=== PATIENT | male | born 1985 | race Caucasian/White ===

== ENCOUNTER 2020-09-02 12:15 | Outpatient (REF) | payer OTHER, SELFPAY | END 2020-09-02 12:16 | disposition home or self-care (01) | LOC: HO.WFDLDS 12:15 | PROVIDERS: Visit Provider Internal Medicine | DX: Z20.828 Contact with and (suspected) exposure to other viral communicable diseases (principal) | CPT/HCPCS: C9803; U0003 ==

== ENCOUNTER 2023-06-08 06:40 | Emergency (ER) | payer OTHER, SELFPAY ==
--- NOTE | 2023-06-08 | ECG_ITS ---
Test Reason : + cocaine Blood Pressure : / mmHG Vent. Rate : 063 BPM Atrial Rate : 063 BPM P-R Int : 154 ms QRS Dur : 090 ms QT Int : 408 ms P-R-T Axes : 029 060 035 degrees QTc Int : 417 ms Normal sinus rhythm Normal ECG No previous ECGs available Referred By: Man Auguste Electronically Signed By:MARCO REBOLLEDO
[2023-06-08 06:55] VITALS: BP 140/86; PULSE 70; RESP 16; TEMP 36.4; O2SAT 95; BMI 57.8
[2023-06-08 07:57] LABS: MANUAL DIFF FLAG NO
[2023-06-08 07:58] LABS: Basophils Absolute Auto 0.1 X10*3/uL (0.0-0.2); Basophils Percent Auto 0.6 % (0-2); Eosinophils Absolute Auto 0.3 X10*3/uL (0.0-0.4); Eosinophils Percent Auto 3.8 % (0-4); Hematocrit 35.6 % (42.0-52.0); Hemoglobin 11.2 g/dl (14.0-18.0); Imm Gran Abs Auto 0.03 X10*3/uL (0.00-0.03); Imm Gran Pct Auto 0.3 % (0.0-0.4); Lymphocytes Absolute Auto 2.1 X10*3/uL (1.2-4.9); Lymphocytes Percent Auto 24.4 % (20-40); Mean Corpuscular HGB Conc 31.5 g/dl (31.0-36.0); Mean Corpuscular Hemoglobin 28.9 pg (27.0-33.0); Mean Platelet Volume 9.4 fL (9.4-12.4); Monocytes Absolute Auto 0.8 X10*3/uL (0.1-1.2); Monocytes Percent Auto 9.4 % (2-11); Neutrophils Absolute Auto 5.4 x10*3/uL (2.0-8.3); Neutrophils Percent Auto 61.5 % (45-73); Platelet Count 213 X10*3/uL (160-400); Red Blood Count 3.87 X10*6/uL (4.60-5.80); Red Cell Distribution Width 13.2 % (11.0-16.0); White Blood Count 8.7 X10*3/uL (4.8-10.8)
--- OUTSIDE RECORDS SUMMARY | 2023-06-08 08:04 | XMS_ITS | Continuity of Care Document ---
Author Name Unknown Organization [facility] ter Address [address] [place] [id number]- Care Team Providers Care Instructional Technology Instructor Name Role Phone Not on Staff, PCP Primary Care Physician Unavail able Encounter [facility] Date(s): 02/17/21 - 02/17/[address] [address]- Encounter Diagnosis Injury of hand, flexor tendon(Final) - 02/17/21 Discharge Disposition: A-D/C Home Attending Physician: Andra Dacosta DO Admitting Physician: Andra Dacosta DO Referring Physician: Not on Staff, Referring MD Allergies, Adverse Reactions, Alerts Substance Reaction Severity Status lithium 1 Persistent Severe Active Geodon 2 Persistent Severe Active traZODone Active 1Throat swelling 2Throat swelling Immunizations Given and Recorded Vaccine Date Status Refusal Reason influenza virus vaccine, inactivated 07/06/20 Give n influenza virus vaccine, inactivated 08/29/18 Give n influenza virus vaccine, inactivated 09/15/14 Give n pneumococcal 23-valent vaccine 08/29/18 Given Not Given Vaccine Date Status Refusal Reason pneumococcal 23-valent vaccine 09/15/14 Not Given Patient Refuses Medications apixaban 5 mg oral tablet See Instructions, 2 tablet By Mouth 2 times a day 6 days FOllowed by 1 tablet 2 times a day for 24 days, # 72 tablet, 0 Refills, Maintenance, 07/06/20 10:39:00 EDT, Tablet, [facility] #[id number], 173, cm, 07/06/20 7:57:00 EDT, Height, 133.1, kg,... Start Date: 07/06/20 Status: Ordered cloNIDine 0.1 mg oral tablet 0.1 mg, 1, tablet, By Mouth, 2 times a day, PRN, # 20 tablet, Refills 0, Tot. Refills 0, Maintenance, Anxiety, 12/06/20 16:27:00 EST, Route to Pharmacy Electronically, [facility]/pharmacy #[id number], Partial fill upon patient request if the prescription is for a... Start Date: 12/06/20 Stop Date: 12/16/20 Status: Ordered Flomax 0.4 mg oral capsule 0.8 mg, 2, capsule, By Mouth, Daily, Please follow up with PMD upon discharge, # 60 capsule, Refills 0, Tot. Refills 0, Maintenance, 12/06/20 16:32:00 EST, Route to Pharmacy Electronically, [facility]acy #[id number], Partial fill upon patient request if the... Start Date: 12/06/20 Stop Date: 01/05/21 Status: Ordered gabapentin 800 mg oral tablet 1 tablet = 800 mg, By Mouth, 4 times a day, # 120 tablet, 0 Refills, Maintenance, 12/06/20 16:28:00EST, [facility]/pharmacy #[id number], Partial fill upon patient request if the prescription is for a schedule IIopioid drug., 173, cm, 12/06/20 16:12:00 EST, Heigh... Start Date: 12/06/20 Stop Date: 01/05/21 Status: Ordered hydrOXYzine hydrochloride 50 mg oral tablet TAKE 1&1/2 TABLETS BY MOUTH EVERY MORNING AND 1 TABLET UP TO TWICE A DAY NEEDED FOR ANXIETY Start Date: 11/24/20 Status: Ordered lamotrigine 100 mg oral tablet 100 mg, 1, tablet, By Mouth, 2 times a day, # 60 tablet, Refills 0, Tot. Refills 0, Maintenance, 12/06/20 16:28:00 EST, Route to Pharmacy Electronically, [facility]/pharmacy #[id number], Partial fill upon patientrequest if the prescription is for a schedule II op... Start Date: 12/06/20 Stop Date: 01/05/21 Status: Ordered mirtazapine 15 mg oral tablet 1 tablet = 15 mg, By Mouth, Daily at bedtime, # 30 tablet, 0 Refills, Maintenance, 12/06/20 16:31:00 EST, Tablet, [facility]/pharmacy #[id number], Partial fill upon patient request if the prescription is for a schedule II opioid drug., 173, cm, 12/06/20 16:12:00 E... Start Date: 12/06/20 Stop Date: 01/05/21 Status: Ordered mirtazapine 45 mg oral tablet 1 tablet = 45 mg, By Mouth, Daily in AM, # 30 tablet, 0 Refills, Maintenance, 12/06/20 16:32:00 EST, Tablet, [facility]/pharmacy #[id number], Partial fill upon patient request if the prescription is for a schedule II opioid drug., 173, cm, 12/06/20 16:12:00 EST, H... Start Date: 12/06/20 Stop Date: 01/05/21 Status: Ordered olanzapine 10 mg oral tablet 10 mg, 1, tablet, By Mouth, Daily at bedtime, # 30 tablet, Refills 0, Tot. Refills 0, Maintenance, 12/06/20 16:32:00 EST, Route to Pharmacy Electronically, [facility]/pharmacy #[id number], Partial fill upon patient request if the prescription is for a schedule II... Start Date: 12/06/20 Stop Date: 01/05/21 Status: Ordered oxybutynin 15 mg/24 hr oral tablet, extended release 1 tablet = 15 mg, By Mouth, Daily, Please see your provider for continued treatment, # 30 tablet, 0Refills, Maintenance, 12/06/20 16:33:00 EST, ER Tablet, [facility]/pharmacy #[id number], Partial fill upon patient request if the prescription is for a schedule II... Start Date: 12/06/20 Stop Date: 01/05/21 Status: Ordered Pepcid 20 mg oral tablet 1 tablet = 20 mg, By Mouth, 2 times a day, # 60 tablet, 2 Refills, Maintenance, 07/06/20 11:43:00 EDT, Tablet, [facility] #[id number], 173, cm, 07/06/20 7:57:00 EDT, Height, 133.1, kg, 07/05/20 15:21:00 EDT, Dry Weight Start Date: 07/06/20 Stop Date: 10/04/20 Status: Ordered propranolol 20 mg oral tablet 20 mg, 1, tablet, By Mouth, 4 times a day, PRN, Refills 0, Maintenance, Anxiety, 07/05/20 16:16:00 EDT Start Date: 07/05/20 Status: Ordered Problem List Condition Effective Dates Status Health Status Inform ant Alcohol dependence(Confirmed) Active Benign essential HTN(Confirmed) Active Benzodiazepine abuse(Confirmed) Active Cannabis abuse(Confirmed) Active Cocaine abuse(Confirmed) Active Depression(Confirmed) Active H/O osteomyelitis(Confirmed) Active Nicotine dependence(Confirmed) Active Opiate dependence(Confirmed) Active Hepatitis C(Confirmed) Active Weight loss(Confirmed) Active Results Radiology Reports * Exam Date Time Procedure Performing Provider Status 02/17/21 5:48 PM Finger Thumb Left Hand Eze Patricia le; Auth (Verified) Notes: (Finger Thumb Left Hand) Reason For Exam: Trauma RESULT: Finger Thumb Left Hand Finger Thumb Left Hand, 3 views Hx of Present Illness: Left thumb injury, sutures in place. wants sutures removed and thumb evaluated by provider.; Reason: Trauma; Clinical Question(s): Fracture COMPARISON: 01/13/2019. FINDINGS: No fractures or bone lesions. The incidentally included remainder of the hand is notable for an oldhealed fracture of the fifth metacarpal neck, previous fracture also seen on exam from 01/13/2019. No arthritic changes. No radiopaque foreign body. IMPRESSION: No acute osseous findings. WSN: [id number] Ordering Physician: Alexa Bolaños Dictated By: Shae Avalos MD Dictated Date/Time: 02/17/21 5:52 pm Reviewed By: Shae Avalos MD Signed By: Shae Avalos MD Signed Date/Time: 02/17/21 5:52 pm Transcribed By: NAYELI Transcribed Date/Time: 02/17/21 5:50 pm Vital Signs Most recent to oldest [Reference Range]: 1 2 3 Oxygen Saturation [94-100 %] 100 % (02/17/21 6:11 PM) 100 % (02/17/21 3:33 PM) 99 % (02/17/21 1:02 PM) Pulse Rate [55-90 bpm] 70 bpm (02/17/21 6:11 PM) 69 bpm (02/17/21 3:33 PM) 90 bpm (02/17/21 1:02 PM) Blood Pressure [90-138/55-84 mm Hg] 146/107mm Hg *H* (02/17/21 6:11 PM) 131/102mm Hg (02/17/21 3:33 PM) Respiratory Rate [16-30 br/min] 16 br/min (02/17/21 6:11 PM) 20 br/min (02/17/21 3:33 PM) Temperature [96.8-100.4 DegF] 98.4 DegF (02/17/21 6:11 PM) 98 DegF (02/17/21 3:33 PM) Mode of Delivery (Oxygen) Room air (02/17/21 6:11 PM) Room air (02/17/21 3:33 PM) Room air (02/17/21 1:02 PM) Blood pressure sites Arm, right (02/17/21 6:11 PM) Arm, right (02/17/21 3:33 PM) Temperature Route Oral (02/17/21 6:11 PM) Oral (02/17/21 3:33 PM) Social History Social History Type Response Smoking Status Current every day susanna christensen entered on: 09/14/14 Sex
--- OUTSIDE RECORDS SUMMARY | 2023-06-08 08:04 | XMS_ITS | Continuity of Care Document ---
Author Name Unknown Organization [facility] ter Address [address] [place] [id number]- Care Team Providers Care Choker Hooker Name Role Phone Not on Staff, PCP Primary Care Physician Unavail able Encounter [facility] Date(s): 05/22/21 - 05/23/[address] [address] Discharge Disposition: A-D/C Home Attending Physician: Rain CALLAWAY [facility] Admitting Physician: Govind Hobbs DO Referring Physician: Not on Staff, Referring [...] vaccine 09/15/14 Not Given Patient Refuses Medications Bactrim DS 800 mg-160 mg oral tablet 2 tablets, By Mouth, Every 12 hours, for 2 days, # 8 tablet, 0 Refills, Acute 05/25/21 12:08:00 EDT, 05/23/21 12:08:00 EDT, Tablet, [facility], Partial fill upon patient request if the prescription is for a schedule II opioid drug., 2 tablet... Start Date: 05/23/21 Stop Date: 05/25/21 Status: Ordered cloNIDine 0.1 mg oral tablet 0.1 mg, 1, tablet, By Mouth, 4 times a day, PRN, # 120 tablet, Refills 0, Tot. Refills 0, Maintenance, Anxiety, 12/06/20 16:27:00 EST, Route to Pharmacy Electronically, [facility]/pharmacy #[id number], Partial fill upon patient request if the prescription is for a... Start Date: 12/06/20 Stop Date: 12/16/20 Status: Ordered Flomax 0.4 mg oral capsule 0.8 mg, 2, capsule, By Mouth, Daily at bedtime, # 60 capsule, Refills 1, Tot. Refills 1, Maintenance, 04/27/21 13:05:00 EDT, Route to Pharmacy Electronically, [facility], Partial fill upon patient request if the prescription is for a schedul... Start Date: 04/27/21 Status: Ordered gabapentin 400 mg oral capsule 800 mg, Capsule, By Mouth, 05/23/21 13:00:00 EDT Start Date: 05/23/21 Stop Date: 05/23/21 Status: Completed gabapentin 800 mg oral tablet 1 tablet = 800 mg, By Mouth, 4 times a day, # 120 tablet, 0 Refills, Maintenance, 12/06/20 16:28:00EST, [facility]/pharmacy #[id number], Partial fill upon patient request if [...] 12/06/20 16:28:00 EST, [id number] fill upon patientrequest if the prescription is for a schedule II op... Start Date: 12/06/20 Stop Date: 01/05/21 Status: Ordered methadone 10 mg/5 mL oral solution 80 mL = 160 mg, By Mouth, Daily, 0 Refills, Maintenance, 05/23/21 12:07:00 EDT, Solution, Partial fill upon patient request if the prescription is for a schedule II opioid drug. Start Date: 05/23/21 Status: Ordered mirtazapine 15 mg oral tablet 1 tablet = 15 mg, By Mouth, Daily at bedtime, # 30 tablet, 0 Refills, Maintenance, 12/06/20 16:31:00 EST, Tablet, [facility]/pharmacy #[id number], Partial fill upon patient request if the prescription is for a schedule II opioid drug., 173, cm, 12/06/20 16:12:00 E... Start Date: 12/06/20 Stop Date: 01/05/21 Status: Ordered mirtazapine 45 mg oral tablet 1 tablet = 45 mg, By Mouth, Daily in AM, # 30 tablet, 0 Refills, Maintenance, 12/06/20 16:32:00 EST, Tablet, [facility]/pharmacy #[id number], Partial fill upon patient request if the prescription is for a schedule II opioid drug., 173, cm, 12/06/20 16:12:00 EST, H... Start Date: 12/06/20 Stop Date: 01/05/21 Status: Ordered MorPHINE CR Tablet 15 mg, CR Tablet, By Mouth, Daily, 30 minutes before dressing changes, PRN for Pain , Severe, Routine, 05/21/21 14:57:00 EDT Notes: Do Not Crush. Start Date: 05/21/21 Stop Date: 05/28/21 Status: Ordered olanzapine 10 mg oral tablet See Instructions, 1 tablet By Mouth Daily at bedtime, 1/2 tab daily in AM, # 45 tablet, Refills 1, Tot. Refills 1, Maintenance, 04/27/21 13:04:00 EDT, Instructions Replace Required Details, Route to Pharmacy Electronically, [facility], Parti... Start Date: 04/27/21 Status: Ordered oxybutynin 10 mg/24 hr oral tablet, extended release 1 tablet = 10 mg, By Mouth, Daily, # 30 tablet, 1 Refills, Maintenance, 04/27/21 13:05:00 EDT, ER Tablet, [facility], Partial fill upon patient request if the prescription is for a scheduleII opioid drug., 172, cm, 04/27/21 9:52:00 EDT, Hei... Start Date: 04/27/21 Status: Ordered propranolol 20 mg oral tablet 20 mg, 1, tablet, By Mouth, 4 times a day, PRN, Refills 0, Maintenance, Anxiety, 07/05/20 16:16:00 EDT Start Date: 07/05/20 Status: Ordered propranolol 20 mg oral tablet 20 mg, Tablet, By Mouth, 05/23/21 13:00:00 EDT Start Date: 05/23/21 Stop Date: 05/23/21 Status: Completed Problem List Condition Effective Dates Status Health Status Inform ant Alcohol dependence(Confirmed) Active Benign essential HTN(Confirmed) Active Benzodiazepine abuse(Confirmed) Active Cannabis abuse(Confirmed) Active Cocaine abuse(Confirmed) Active Depression(Confirmed) Active H/O osteomyelitis(Confirmed) Active Nicotine dependence(Confirmed) Active Opiate dependence(Confirmed) Active Hepatitis C(Confirmed) Active Weight loss(Confirmed) Active Results Orders for Microbiology Reports Name Date Blood Culture 05/21/21 Blood Culture #2 05/21/21 Blood Culture 05/20/21 Blood Culture #2 05/20/21 Wound Deep Culture w/ Gram Smear (Cultur e Wound Deep w/ Gram Smear) 05/20/21 Wound Superficial Culture W/ Gram Smear (Culture Wound Superficial w/ Gram Smear) 05/20/21 Microbiology Reports TEST:Blood Culture STATUS:Unauthenticated BODY SITE: SOURCE:Blood COLLECTED DATE/TIME:05/21/21 5:53 AM Blood Culture SPECIMEN DESCRIPTION : BLOOD SPECIAL REQUESTS : NONE CULTURE : NO GROWTH AFTER 48 HOURS REPORT STATUS : PRELIMINARY REPORT TEST:Blood Culture, Second Order STATUS:Unauthenticated BODY SITE: SOURCE:Blood COLLECTED DATE/TIME:05/21/21 5:53 AM Blood Culture, Second Order SPECIMEN DESCRIPTION : BLOOD SPECIAL REQUESTS : NONE CULTURE : NO GROWTH AFTER 48 HOURS REPORT STATUS : PRELIMINARY REPORT TEST:Blood Culture STATUS:Unauthenticated BODY SITE: SOURCE:Blood COLLECTED DATE/TIME:05/20/21 6:42 PM Blood Culture SPECIMEN DESCRIPTION : BLOOD NO SITE SPECIAL REQUESTS : NONE CULTURE : NO GROWTH 3 DAYS REPORT STATUS : PRELIMINARY REPORT TEST:Blood Culture, Second Order STATUS:Unauthenticated BODY SITE: SOURCE:Blood COLLECTED DATE/TIME:05/20/21 6:42 PM Blood Culture, Second Order SPECIMEN DESCRIPTION : BLOOD NO SITE SPECIAL REQUESTS : NONE CULTURE : NO GROWTH 3 DAYS REPORT STATUS : PRELIMINARY REPORT TEST:Deep Wound Culture STATUS:Auth (Verified) BODY SITE: SOURCE:WOUND COLLECTED DATE/TIME:05/20/21 3:34 PM Deep Wound Culture SPECIMEN DESCRIPTION : WOUND BACK SPECIAL REQUESTS : NONE GRAM STAIN : 4+ POLYMORPHONUCLEAR LEUKOCYTES 2+ GRAM POSITIVE COCCI CULTURE : 2+ STAPHYLOCOCCUS AUREUS, METHICILLIN RESISTANT. METHICILLIN RESISTANT STAPH AUREUS SHOULD BE CONSIDERED CLINICALLY RESISTANT TO ALL BETA-LACTAMS. REPORT STATUS : FINAL 05/22/2021 ORGANISM 2+ STAPHYLOCOCCUS AUREUS, METHICILLIN RESISTANT. METHICILLIN RESISTANT STAPH AUREUS SHOULD BE CONSIDERED CLINICALLY RESISTANT TO ALL BETA-LACTAMS. METHOD MIN. INHIB. CONC. (MCG/ML) CIPROFLOXACIN SUSCEPTIBLE CLINDAMYCIN SUSCEPTIBLE ERYTHROMYCIN RESISTANT INDUCIBLE CLINDAMYCI NEGATIVE LEVOFLOXACIN SUSCEPTIBLE LINEZOLID SUSCEPTIBLE OXACILLIN RESISTANT RIFAMPIN SUSCEPTIBLE RIFAMPIN RIFAMPIN SHOULD NOT BE USED ALONE FOR ANTIMICROBIAL RIFAMPIN THERAPY. TETRACYCLINE SUSCEPTIBLE TRIMETH/SULFAMETHOX SUSCEPTIBLE VANCOMYCIN SUSCEPTIBLE TEST:Superficial Wound Culture STATUS:Auth (Verified) BODY SITE: SOURCE:LESION1 COLLECTED DATE/TIME:05/20/21 12:43 PM Superficial Wound Culture SPECIMEN DESCRIPTION : LESION BACK SPECIAL REQUESTS : NONE GRAM STAIN : 4+ POLYMORPHONUCLEAR LEUKOCYTES 3+ GRAM POSITIVE COCCI CULTURE : 4+ STAPHYLOCOCCUS AUREUS, METHICILLIN RESISTANT. METHICILLIN RESISTANT STAPH AUREUS SHOULD BE CONSIDERED CLINICALLY RESISTANT TO ALL BETA-LACTAMS. REPORT STATUS : FINAL 05/22/2021 ORGANISM 4+ STAPHYLOCOCCUS AUREUS, METHICILLIN RESISTANT. METHICILLIN RESISTANT STAPH AUREUS SHOULD BE CONSIDERED CLINICALLY RESISTANT TO ALL BETA-LACTAMS. METHOD MIN. INHIB. CONC. (MCG/ML) CIPROFLOXACIN SUSCEPTIBLE CLINDAMYCIN SUSCEPTIBLE ERYTHROMYCIN RESISTANT INDUCIBLE CLINDAMYCI NEGATIVE LEVOFLOXACIN SUSCEPTIBLE LINEZOLID SUSCEPTIBLE OXACILLIN RESISTANT RIFAMPIN SUSCEPTIBLE RIFAMPIN RIFAMPIN SHOULD NOT BE USED ALONE FOR ANTIMICROBIAL RIFAMPIN THERAPY. TETRACYCLINE SUSCEPTIBLE TRIMETH/SULFAMETHOX SUSCEPTIBLE VANCOMYCIN SUSCEPTIBLE Vital Signs Most recent to oldest [Reference Range]: 1 2 3 Height 172.7 cm (05/23/21 11:44 AM) 172.7 cm (05/23/21 8:20 AM) 172.7 cm (05/23/21 4:55 AM) Weight 136.0 kg (05/19/21 7:38 PM) Oxygen Saturation [94-100 %] 100 % (05/23/21 11:44 AM) 95 % (05/23/21 8:20 AM) 98 % (05/23/21 4:55 AM) Pulse Rate [55-90 bpm] 59 bpm (05/23/21 12:17 PM) 59 bpm (05/23/21 11:44 AM) 58 bpm (05/23/21 8:20 AM) Body Mass Index [18.5-24.99] 45.6 *>HHI* (05/19/21 7:38 PM) Blood Pressure [90-138/55-84 mm Hg] 119/77mm Hg (05/23/21 12:17 PM) 119/77mm Hg (05/23/21 11:44 AM) 122/81mm Hg (05/23/21 8:20 AM) Respiratory Rate [16-30 br/min] 18 br/min (05/23/21 12:16 PM) 20 br/min (05/23/21 11:44 AM) 16 br/min (05/23/21 9:44 AM) Temperature [96.8-100.4 DegF] 97.6 DegF (05/23/21 11:44 AM) 97.5 DegF (05/23/21 8:20 AM) 98.0 DegF (05/23/21 4:55 AM) Mode of Delivery (Oxygen) Room air (05/23/21 11:44 AM) Room air (05/23/21 8:20 AM) Room air (05/23/21 4:55 AM) Blood pressure sites Arm, right (05/23/21 11:44 AM) Arm, left (05/23/21 8:20 AM) Arm, right (05/23/21 4:55 AM) Temperature Route Oral (05/23/21 11:44 AM) Oral (05/23/21 8:20 AM) Oral (05/23/21 4:55 AM) Dry Weight 136 kg (05/19/21 7:38 PM) Social History Social History Type Response Smoking Status Current every day susanna christensen entered on: 09/14/14 Sex Male
--- OUTSIDE RECORDS SUMMARY | 2023-06-08 08:04 | XMS_ITS | Continuity of Care Document ---
Author Name Unknown Organization [facility] Address [address] [place] [address] [address] [place] [address]- Care Team Providers Care Editor Sound Name Role Phone Not on Staff, PCP Primary Care Physician Unavail able Encounter [facility] Date(s): 03/07/21 - 04/06/21 [facility] [address] [place], [place] [address] Attending Physician: Nayana Angelo Admitting Physician: Admtr, [id number] Referring Physician: Admtr, [id number] Allergies, Adverse Reactions, Alerts Substance Reaction Severity [...] vaccine 09/15/14 Not Given Patient Refuses Medications cloNIDine 0.1 mg oral tablet 0.1 mg, 1, tablet, By Mouth, 2 times a day, PRN, # 20 tablet, Refills 0, Tot. Refills 0, Maintenance, Anxiety, 12/06/20 16:27:00 EST, Route to Pharmacy Electronically, [facility]/pharmacy #[id number], Partial fill upon patient request if the prescription is for a... Start Date: 12/06/20 Stop Date: 12/16/20 Status: Ordered gabapentin 800 mg oral tablet 1 tablet = 800 mg, By Mouth, 4 times a day, # 120 tablet, 0 Refills, Maintenance, 12/06/20 16:28:00EST, [facility] #[id number], Partial fill upon patient request [...] 12/06/20 16:28:00 EST, Route to Pharmacy Electronically, [id number], Partial fill upon patientrequest if the prescription is for a schedule II op... Start Date: 12/06/20 Stop Date: 01/05/21 Status: Ordered mirtazapine 15 mg oral tablet 1 tablet = 15 mg, By Mouth, Daily at bedtime, # 30 tablet, 0 Refills, Maintenance, 12/06/20 16:31:00 EST, Tablet, [id number], Partial fill upon patient request if the prescription is for a schedule II opioid drug., 173, cm, 12/06/20 16:12:00 E... Start Date: 12/06/20 Stop Date: 01/05/21 Status: Ordered mirtazapine 45 mg oral tablet 1 tablet = 45 mg, By Mouth, Daily in AM, # 30 tablet, 0 Refills, Maintenance, 12/06/20 16:32:00 EST, Tablet, [id number], Partial fill upon patient request [...] Date: 12/06/20 Stop Date: 01/05/21 Status: Ordered propranolol 20 mg oral tablet [...] Active Hepatitis C(Confirmed) Active Weight loss(Confirmed) Active Social History Social History Type Response Smoking Status Current every day susanna christensen entered on: 09/14/14 Sex Male
--- OUTSIDE RECORDS SUMMARY | 2023-06-08 08:04 | XMS_ITS | Continuity of Care Document ---
Author Name Unknown Organization [facility] Address [address] [place] [address]- Care Team Providers Care Smoke Eater Name Role Phone Not on Staff, PCP Primary Care Physician Unavail able [place] [facility] [place] 04[place]/21 [facility] [address] [place] [address]- Discharge Disposition: A-D/C Home Attending Physician: Veronica Solano MD Admitting Physician: Veronica Solano MD Referring Physician: Veronica Solano MD Allergies, Adverse Reactions, Alerts Substance Reaction [...] 12/06/20 16:27:00 EST, Route to Pharmacy Electronically, [facility]/pharmacy #[id number], Partial fill upon patient request if the prescription is for a... Start Date: 12/06/20 Stop Date: 12/16/20 Status: Ordered Flomax 0.4 mg oral capsule 0.8 mg, 2, capsule, By Mouth, Daily at bedtime, # 60 capsule, Refills 1, Tot. Refills 1, Maintenance, 04/27/21 13:05:00 EDT, Route to Pharmacy Electronically, [facility], Partial fill upon patient request if the prescription is for a schedul... Start Date: 04/27/21 Status: Ordered gabapentin 800 mg oral tablet 1 tablet = 800 mg, By Mouth, 4 times a day, # 120 tablet, 0 Refills, Maintenance, 12/06/20 16:28:00EST, [facility]/pharmacy #[id number], Partial fill upon patient request if the prescription is for a schedule IIopioid drug., 173, cm, 12/06/20 16:12:00 EST, Heigh... Start Date: 12/06/20 Stop Date: 01/05/21 Status: Ordered Gabapentin Capsule 800 mg, Capsule, By Mouth, 04/27/21 21:00:00 EDT Start Date: 04/27/21 Stop Date: 04/27/21 Status: Completed Gabapentin Capsule 800 mg, Capsule, By Mouth, 04/28/21 9:00:00 EDT Start Date: 04/28/21 Stop Date: 04/28/21 Status: Completed hydrOXYzine hydrochloride 50 mg oral tablet TAKE 1&1/2 TABLETS BY MOUTH EVERY MORNING AND 1 TABLET UP TO TWICE A DAY NEEDED FOR ANXIETY Start Date: 11/24/20 Status: Ordered lamotrigine 100 mg oral tablet 100 mg, 1, tablet, By Mouth, 2 times a day, # 60 tablet, Refills 0, Tot. Refills 0, Maintenance, 12/06/20 16:28:00 EST, Route to Pharmacy Electronically, [facility]/pharmacy #[id number], Partial fill upon patientrequest if the prescription is for a schedule II op... Start Date: 12/06/20 Stop Date: 01/05/21 Status: Ordered Methadone Liquid 160 mg, Solution, By Mouth, 04/28/21 6:00:00 EDT Start Date: 04/28/21 Stop Date: 04/28/21 Status: Completed mirtazapine 15 mg oral tablet 1 tablet = 15 mg, By Mouth, Daily at bedtime, # 30 tablet, 0 Refills, Maintenance, 12/06/20 16:31:00 EST, Tablet, [facility]/pharmacy #[id number], Partial fill upon patient request if the prescription is for a schedule II opioid drug., 173, cm, 12/06/20 16:12:00 E... Start Date: 12/06/20 Stop Date: 01/05/21 Status: Ordered mirtazapine 45 mg oral tablet 1 tablet = 45 mg, By Mouth, Daily in AM, # 30 tablet, 0 Refills, Maintenance, 12/06/20 16:32:00 EST, Tablet, [facility]/pharmacy #[id number], Partial fill upon patient request [...] Replace Required Details, Route to Pharmacy Electronically, [facility], Parti... Start Date: 04/27/21 Status: Ordered oxybutynin 10 mg/24 hr oral tablet, extended release 1 tablet = 10 mg, By Mouth, Daily, # 30 tablet, 1 Refills, Maintenance, 04/27/21 13:05:00 EDT, ER Tablet, [facility], Partial fill upon patient request if [...] oral tablet 20 mg, Tablet, By Mouth, 4 times a day, PRN for Anxiety, Routine, 04/19/21 10:21:00 EDT Start Date: 04/19/21 Stop Date: 04/28/21 Status: Discontinued Problem List Condition Effective Dates Status Health Status Inform ant Alcohol dependence(Confirmed) Active Benign essential HTN(Confirmed) Active Benzodiazepine abuse(Confirmed) Active Cannabis abuse(Confirmed) Active Cocaine abuse(Confirmed) Active Depression(Confirmed) Active H/O osteomyelitis(Confirmed) Active Nicotine dependence(Confirmed) Active Opiate dependence(Confirmed) Active Hepatitis C(Confirmed) Active Weight loss(Confirmed) Active Vital Signs Most recent to oldest [Reference Range]: 1 2 3 Height 172 cm (04/28/21 8:12 AM) 172 cm (04/27/21 4:54 PM) 172 cm (04/27/21 9:52 AM) Weight 138.1 kg (04/25/21 8:33 AM) 134.3 kg (04/18/21 6:59 PM) Oxygen Saturation [94-100 %] 97 % (04/28/21 8:12 AM) 98 % (04/27/21 4:54 PM) 100 % (04/27/21 9:52 AM) Pulse Rate [55-90 bpm] 87 bpm (04/28/21 8:12 AM) 79 bpm (04/27/21 4:54 PM) 80 bpm (04/27/21 1:11 PM) Body Mass Index [18.5-24.99] 45.4 *>HHI* (04/18/21 6:59 PM) Blood Pressure [90-138/55-84 mm Hg] 135/76mm Hg (04/28/21 8:12 AM) 117/83mm Hg (04/27/21 4:54 PM) 108/72mm Hg (04/27/21 1:11 PM) Respiratory Rate [16-30 br/min] 16 br/min (04/28/21 8:18 AM) 16 br/min (04/28/21 5:04 AM) 18 br/min (04/27/21 8:53 PM) Temperature [96.8-100.4 DegF] 97.5 DegF (04/28/21 8:12 AM) 98.7 DegF (04/27/21 4:54 PM) 96.9 DegF (04/27/21 8:11 AM) Mode of Delivery (Oxygen) Room air (04/27/21 4:54 PM) Room air (04/27/21 8:11 AM) Room air (04/26/21 4:04 PM) Blood pressure sites Arm, left (04/28/21 8:12 AM) Arm, left (04/27/21 4:54 PM) Arm, right (04/27/21 8:11 AM) Temperature Route Temporal (04/28/21 8:12 AM) Temporal (04/27/21 4:54 PM) Temporal (04/27/21 8:11 AM) Dry Weight 134.4 kg (04/18/21 6:59 PM) Sensory deficits None (04/18/21 6:59 PM) Social History Social History Type Response Smoking Status Current every day susanna christensen entered on: 09/14/14 Sex Male
--- OUTSIDE RECORDS SUMMARY | 2023-06-08 08:04 | XMS_ITS | Continuity of Care Document ---
Author Name Unknown Organization [facility] ter Address [address] [place] [id number]- Care Team Providers Care Lining Maker Hand Name Role Phone Not on Staff, PCP Primary Care Physician Unavail able Encounter [facility] [place] Date(s): 04/17/21 - 04/18/[address] [address]- Encounter Diagnosis Suicidal ideation(Final) - 04/17/21 Discharge Disposition: Transfer to [facility] Attending Physician: Selvin Miller MD Admitting Physician: Selvin Miller MD Referring Physician: Not on Staff, Referring MD Allergies, Adverse Reactions, Alerts Substance Reaction Severity Status lithium 1 Persistent Severe Active traZODone Active Geodon 2 Persistent Severe Active 1Throat swelling 2Throat swelling Immunizations Given [...] 12/06/20 16:27:00 EST, Route to Pharmacy Electronically, [facility]/pharmacy #[id number], Partial fill upon patient request if the prescription is for a... Start Date: 12/06/20 Stop Date: 12/16/20 Status: Ordered gabapentin 400 mg oral capsule 800 mg, Capsule, By Mouth, 04/18/21 17:00:00 EDT Start Date: 04/18/21 Stop Date: 04/18/21 Status: Completed gabapentin 800 mg oral tablet 1 tablet = 800 mg, By Mouth, 4 times a day, # 120 tablet, 0 Refills, Maintenance, 12/06/20 16:28:00EST, [facility]/pharmacy #[id number], Partial fill upon patient request if the prescription is for a schedule IIopioid drug., lesley Smith, 12/06/20 16:12:00 EST, Heigh... Start Date: 12/06/20 [...] 12/06/20 16:28:00 EST, Route to Pharmacy Electronically, [facility]/pharmacy #[id number], Partial fill upon patientrequest if the prescription is for a schedule II op... Start Date: 12/06/20 Stop Date: 01/05/21 Status: Ordered mirtazapine 15 mg oral tablet 1 tablet = 15 mg, By Mouth, Daily at bedtime, # 30 tablet, 0 Refills, Maintenance, 12/06/20 16:31:00 EST, Tablet, [facility]/pharmacy #[id number], Partial fill upon patient request if the prescription is for a schedule II opioid drug., lesley Smith, 12/06/20 16:12:00 E... Start Date: 12/06/20 Stop Date: 01/05/21 Status: Ordered mirtazapine 45 mg oral tablet 1 tablet = 45 mg, By Mouth, Daily in AM, # 30 tablet, 0 Refills, Maintenance, 12/06/20 16:32:00 EST, Tablet, [facility]/pharmacy #[id number], Partial fill upon patient request if the prescription is for a schedule II opioid drug., 173lesley, 12/06/20 16:12:00 EST, H... Start Date: 12/06/20 Stop Date: 01/05/21 Status: Ordered olanzapine 10 mg oral tablet 10 mg, 1, tablet, By Mouth, Daily at bedtime, # 30 tablet, Refills 0, Tot. Refills 0, Maintenance, 12/06/20 16:32:00 EST, Route to Pharmacy Electronically, [facility]/pharmacy #[id number], Partial fill upon patient [...] 1 2 3 Oxygen Saturation [94-100 %] 99 % (04/18/21 4:36 PM) 98 % (04/18/21 11:36 AM) 99 % (04/18/21 10:22 AM) Pulse Rate [55-90 bpm] 59 bpm (04/18/21 4:36 PM) 60 bpm (04/18/21 11:36 AM) 59 bpm (04/18/21 10:22 AM) Blood Pressure [90-138/55-84 mm Hg] 140/80mm Hg *H* (04/18/21 4:36 PM) 138/77mm Hg (04/18/21 11:36 AM) 136/76mm Hg (04/18/21 10:22 AM) Respiratory Rate [16-30 br/min] 18 br/min (04/18/21 4:36 PM) 19 br/min (04/18/21 11:36 AM) 18 br/min (04/18/21 10:22 AM) Temperature [96.8-100.4 DegF] 97.1 DegF (04/18/21 4:36 PM) 97.1 DegF (04/18/21 11:36 AM) 97.1 DegF (04/18/21 10:22 AM) Mode of Delivery (Oxygen) Room air (04/18/21 4:36 PM) Room air (04/18/21 11:36 AM) Room air (04/18/21 10:22 AM) Blood pressure sites Arm, right (04/18/21 6:17 AM) Arm, right (04/17/21 8:56 PM) Arm, right (04/17/21 2:37 PM) Temperature Route Oral (04/18/21 4:36 PM) Oral (04/18/21 11:36 AM) Oral (04/18/21 10:22 AM) Social History Social History Type Response Smoking Status Current every day susanna christensen entered on: 09/14/14 Sex Male
--- OUTSIDE RECORDS SUMMARY | 2023-06-08 08:04 | XMS_ITS | Continuity of Care Document ---
Author Name Unknown Organization [facility] ter Address [address] [place] [id number]- Care Team Providers Care Federal Judge Name Role Phone Not on Staff, PCP Primary Care Physician Unavail able Encounter [facility] [place] Date(s): 05/23/21 - 06/22/[address] [address]- Attending Physician: Not on Staff, Attending MD Admitting Physician: Not on Staff, Admitting MD Referring Physician: Not on Staff, Referring [...] 16:27:00 EST, Route to Pharmacy Electronically, [facility]/pharmacy #[id number], Partial fill upon patient request if the prescription is for a... Start Date: 12/06/20 Stop Date: 12/16/20 Status: Ordered Flomax 0.4 mg oral capsule 0.8 mg, 2, capsule, By Mouth, Daily at bedtime, # 60 capsule, Refills 1, Tot. Refills 1, Maintenance, 04/27/21 13:05:00 EDT, Route to Pharmacy Electronically, [facility], Partial fill upon patient request if the prescription is for a schedul... Start Date: 04/27/21 Status: Ordered gabapentin 800 mg oral tablet 1 tablet = 800 mg, By Mouth, 4 times a day, # 120 tablet, 0 Refills, Maintenance, 12/06/20 16:28:00EST, [facility]/pharmacy #[id number], Partial fill upon patient request [...] 12/06/20 16:28:00 EST, Route to Pharmacy Electronically, [facility]/pharmacy #[id number], Partial fill upon patientrequest if [...] 0 Refills, Maintenance, 12/06/20 16:31:00 EST, Tablet, [facility]/pharmacy #[id number], Partial fill upon patient request if the prescription is for a schedule II opioid drug., 173, cm, 12/06/20 16:12:00 E... Start Date: 12/06/20 Stop Date: 01/05/21 Status: Ordered mirtazapine 45 mg oral tablet 1 tablet = 45 mg, By Mouth, Daily in AM, # 30 tablet, 0 Refills, Maintenance, 12/06/20 16:32:00 EST, Tablet, [facility]/pharmacy #[id number], Partial fill upon patient request [...] Replace Required Details, Route to Pharmacy Electronically, [facility], Parti... Start Date: 04/27/21 Status: Ordered oxybutynin 10 mg/24 hr oral tablet, extended release 1 tablet = 10 mg, By Mouth, Daily, # 30 tablet, 1 Refills, Maintenance, 04/27/21 13:05:00 EDT, ER Tablet, [facility], Partial fill upon patient request if [...]
--- OUTSIDE RECORDS SUMMARY | 2023-06-08 08:04 | XMS_ITS | Continuity of Care Document ---
Author Name Unknown Organization [facility] Address [address] [place] [address] [address] [place] [address]- Care Team Providers Care Guest History Clerk Name Role Phone Not on Staff, PCP Primary Care Physician Unavail able [place] [facility]14[place]21 [facility] [address] [place] [address] Drive [address] [place] [address]- Attending Physician: Jolly Esparza Allergies, Adverse Reactions, Alerts Substance Reaction Severity [...] 12/06/20 16:27:00 EST, Route to Pharmacy Electronically, [facility]/pharmacy #[id number], Partial fill upon patient request if the prescription is for a... Start Date: 12/06/20 Stop Date: 12/16/20 Status: Ordered gabapentin 800 mg oral tablet 1 tablet = 800 mg, By Mouth, 4 times a day, # 120 tablet, 0 Refills, Maintenance, 12/06/20 16:28:00EST, [facility]/pharmacy #[id number], Partial fill upon patient request [...] 12/06/20 16:28:00 EST, Route to Pharmacy Electronically, [facility]/pharmacy #[id number], Partial fill upon patientrequest if the prescription is for a schedule II op... Start Date: 12/06/20 Stop Date: 01/05/21 Status: Ordered mirtazapine 15 mg oral tablet 1 tablet = 15 mg, By Mouth, Daily at bedtime, # 30 tablet, 0 Refills, Maintenance, 12/06/20 16:31:00 EST, Tablet, [facility]/pharmacy #[id number], Partial fill upon patient request if the prescription is for a schedule II opioid drug., 173, cm, 12/06/20 16:12:00 E... Start Date: 12/06/20 Stop Date: 01/05/21 Status: Ordered mirtazapine 45 mg oral tablet 1 tablet = 45 mg, By Mouth, Daily in AM, # 30 tablet, 0 Refills, Maintenance, 12/06/20 16:32:00 EST, Tablet, [facility]/pharmacy #[id number], Partial fill upon patient request [...] Most recent to oldest [Reference Range]: 1 Height 174 cm (03/07/21 3:02 PM) Weight 130 kg (03/07/21 3:02 PM) Body Mass Index [18.5-24.99] 42.94 *>HHI* (03/07/21 3:02 PM) Temperature [96.8-100.4 DegF] 98.8 DegF (03/07/21 3:02 PM) Social History Social History Type Response Smoking Status Current every day susanna christensen entered on: 09/14/14 Sex Male
--- OUTSIDE RECORDS SUMMARY | 2023-06-08 08:04 | XMS_ITS | Continuity of Care Document ---
Author Name Unknown Organization [facility] Address [address] [place] [address]- Care Team Providers Care Playground Equipment Erector Name Role Phone Not on Staff, PCP Primary Care Physician Unavail able [place] [facility] [place] 09/21/[place] [facility] [address] [place] [address]- Attending Physician: Gene Altamirano MD Admitting Physician: Gene Altamirano MD Allergies, Adverse Reactions, Alerts Substance Reaction [...] 12/06/20 16:27:00 EST, Route to Pharmacy Electronically, [facility]/pharmacy #[id number], Partial fill upon patient request if the prescription is for a... Start Date: 12/06/20 Stop Date: 12/16/20 Status: Ordered Flomax 0.4 mg oral capsule 0.8 mg, 2, capsule, By Mouth, Daily at bedtime, # 60 capsule, Refills 1, Tot. Refills 1, Maintenance, 04/27/21 13:05:00 EDT, Route to Pharmacy Electronically, [facility], Partial fill upon patient request if the prescription is for a schedul... Start Date: 04/27/21 Status: Ordered gabapentin 800 mg oral tablet 1 tablet = 800 mg, By Mouth, 4 times a day, # 120 tablet, 0 Refills, Maintenance, 12/06/20 16:28:00EST, [facility]/pharmacy #[id number], Partial fill upon patient request [...] 12/06/20 16:28:00 EST, Route to Pharmacy Electronically, [facility]/pharmacy #[id number], Partial fill upon patientrequest if [...] 0 Refills, Maintenance, 12/06/20 16:31:00 EST, Tablet, [facility]/pharmacy #[id number], Partial fill upon patient request if the prescription is for a schedule II opioid drug., 173, cm, 12/06/20 16:12:00 E... Start Date: 12/06/20 Stop Date: 01/05/21 Status: Ordered mirtazapine 45 mg oral tablet 1 tablet = 45 mg, By Mouth, Daily in AM, # 30 tablet, 0 Refills, Maintenance, 12/06/20 16:32:00 EST, Tablet, [facility]/pharmacy #[id number], Partial fill upon patient request [...] Replace Required Details, Route to Pharmacy Electronically, [facility], Parti... Start Date: 04/27/21 Status: Ordered oxybutynin 10 mg/24 hr oral tablet, extended release 1 tablet = 10 mg, By Mouth, Daily, # 30 tablet, 1 Refills, Maintenance, 04/27/21 13:05:00 EDT, ER Tablet, [facility], Partial fill upon patient request if [...]
--- OUTSIDE RECORDS SUMMARY | 2023-06-08 08:04 | XMS_ITS | Continuity of Care Document ---
Author Name Unknown Organization [facility] Address [address] [place] [address]- Care Team Providers Care Chief Of Service Name Role Phone Not on Staff, PCP Primary Care Physician Unavail able [place] [facility] [place]s): 08/22/21 - 09/21/21 [facility] [address] [place] [address]- Attending Physician: Nayana Angelo Admitting Physician: Nayana Angelo Referring Physician: AdmtrNayana Allergies, Adverse Reactions, Alerts Substance Reaction Severity [...] 12/06/20 16:27:00 EST, Route to Pharmacy Electronically, [facility]/pharmacy #[id number], Partial fill upon patient request if the prescription is for a... Start Date: 12/06/20 Stop Date: 12/16/20 Status: Ordered Flomax 0.4 mg oral capsule 0.8 mg, 2, capsule, By Mouth, Daily at bedtime, # 60 capsule, Refills 1, Tot. Refills 1, Maintenance, 04/27/21 13:05:00 EDT, Route to Pharmacy Electronically, [facility], Partial fill upon patient request if the prescription is for a schedul... Start Date: 04/27/21 Status: Ordered gabapentin 800 mg oral tablet 1 tablet = 800 mg, By Mouth, 4 times a day, # 120 tablet, 0 Refills, Maintenance, 12/06/20 16:28:00EST, [facility]/pharmacy #[id number], Partial fill upon patient request if [...] 12/06/20 16:28:00 EST, Route to Pharmacy Electronically, [facility]/pharmacy #[id number], Partial fill upon patientrequest if the [...] 0 Refills, Maintenance, 12/06/20 16:31:00 EST, Tablet, [facility]/pharmacy #[id number], Partial fill upon patient request if the prescription is for a schedule II opioid drug., 173, cm, 12/06/20 16:12:00 E... Start Date: 12/06/20 Stop Date: 01/05/21 Status: Ordered mirtazapine 45 mg oral tablet 1 tablet = 45 mg, By Mouth, Daily in AM, # 30 tablet, 0 Refills, Maintenance, 12/06/20 16:32:00 EST, Tablet, [facility]/pharmacy #[id number], Partial fill upon patient request if [...] Replace Required Details, Route to Pharmacy Electronically, [facility], Parti... Start Date: 04/27/21 Status: Ordered oxybutynin 10 mg/24 hr oral tablet, extended release 1 tablet = 10 mg, By Mouth, Daily, # 30 tablet, 1 Refills, Maintenance, 04/27/21 13:05:00 EDT, ER Tablet, [facility], Partial fill upon patient request if [...]
--- OUTSIDE RECORDS SUMMARY | 2023-06-08 08:04 | XMS_ITS | Continuity of Care Document ---
Author Name Unknown Organization [facility] ter Address [address] [place] [address]- Care Team Providers Care Study Abroad Coordinator Name Role Phone Not on Staff, PCP Primary Care Physician Unavail able Encounter [facility] [place] Date(s): 02/07/21 - 02/07/[address] [address]- Discharge Disposition: A-D/C Home Attending Physician: Herbert Fischer MD Admitting Physician: Herbert Fischer MD Referring Physician: Not on Staff, Referring [...] 0 Refills, Maintenance, 07/06/20 10:39:00 EDT, Tablet, [id number], 173, cm, 07/06/20 7:57:00 EDT, Height, 133.1, kg,... Start Date: 07/06/20 Status: Ordered cloNIDine 0.1 mg oral tablet 0.1 mg, 1, tablet, By Mouth, 2 times a day, PRN, # 20 tablet, Refills 0, Tot. Refills 0, Maintenance, Anxiety, 12/06/20 16:27:00 EST, Route to Pharmacy Electronically, [facility]/pharmacy #[id number], Partial fill upon patient request if the prescription is for a... Start Date: 12/06/20 Stop Date: 12/16/20 Status: Ordered Flomax 0.4 mg oral capsule 0.8 mg, 2, capsule, By Mouth, Daily, Please follow up with PMD upon discharge, # 60 capsule, Refills 0, Tot. Refills 0, Maintenance, 12/06/20 16:32:00 EST, Route to Pharmacy Electronically, [facility]/pharmacy #[id number], Partial fill upon patient request if the... Start Date: 12/06/20 Stop Date: 01/05/21 Status: Ordered gabapentin 800 mg oral tablet 1 tablet = 800 mg, By Mouth, 4 times a day, # 120 tablet, 0 Refills, Maintenance, 12/06/20 16:28:00EST, [facility]/pharmacy #[id number], Partial fill upon patient request if [...] 12/06/20 16:28:00 EST, Route to Pharmacy Electronically, [facility]/pharmacy #[id number], Partial fill upon patientrequest if the prescription is for a schedule II op... Start Date: 12/06/20 Stop Date: 01/05/21 Status: Ordered mirtazapine 15 mg oral tablet 1 tablet = 15 mg, By Mouth, Daily at bedtime, # 30 tablet, 0 Refills, Maintenance, 12/06/20 16:31:00 EST, Tablet, [facility]/pharmacy #[id number], Partial fill upon patient request if the prescription is for a schedule II opioid drug., 173, cm, 12/06/20 16:12:00 E... Start Date: 12/06/20 Stop Date: 01/05/21 Status: Ordered mirtazapine 45 mg oral tablet 1 tablet = 45 mg, By Mouth, Daily in AM, # 30 tablet, 0 Refills, Maintenance, 12/06/20 16:32:00 EST, Tablet, [facility]/pharmacy #[id number], Partial fill upon patient request if the prescription is for a schedule II opioid drug., 173, cm, 12/06/20 16:12:00 EST, H... Start Date: 12/06/20 Stop Date: 01/05/21 Status: Ordered olanzapine 10 mg oral tablet 10 mg, 1, tablet, By Mouth, Daily at bedtime, # 30 tablet, Refills 0, Tot. Refills 0, Maintenance, 12/06/20 16:32:00 EST, Route to Pharmacy Electronically, [facility]/pharmacy #[id number], Partial fill upon patient request if the prescription is for a schedule II... Start Date: 12/06/20 Stop Date: 01/05/21 Status: Ordered oxybutynin 15 mg/24 hr oral tablet, extended release 1 tablet = 15 mg, By Mouth, Daily, Please see your provider for continued treatment, # 30 tablet, 0Refills, Maintenance, 12/06/20 16:33:00 EST, ER Tablet, [facility]/pharmacy #[id number], Partial fill upon patient request if the prescription is for a schedule II... Start Date: 12/06/20 Stop Date: 01/05/21 Status: Ordered Pepcid 20 mg oral tablet 1 tablet = 20 mg, By Mouth, 2 times a day, # 60 tablet, 2 Refills, Maintenance, 07/06/20 11:43:00 EDT, Tablet, [id number], 173, cm, 07/06/20 7:57:00 EDT, Height, 133.1, [...] recent to oldest [Reference Range]: 1 2 Height 174 cm (02/07/21 8:35 AM) 174 cm (02/07/21 8:23 AM) Weight 132.6 kg (02/07/21 8:35 AM) 132.6 kg (02/07/21 8:23 AM) Oxygen Saturation [94-100 %] 100 % (02/07/21 8:23 AM) Pulse Rate [55-90 bpm] 94 bpm *H* (02/07/21 8:23 AM) Body Mass Index [18.5-24.99] 43.8 *>HHI* (02/07/21 8:23 AM) Blood Pressure [90-138/55-84 mm Hg] 118/ 86mm Hg (02/07/21 8:23 AM) Respiratory Rate [16-30 br/min] 16 br/mi n (02/07/21 8:23 AM) Temperature [96.8-100.4 DegF] 98.6 DegF (02/07/21 8:23 AM) Mode of Delivery (Oxygen) Room air (02/07/21 8:23 AM) Blood pressure sites Arm, right (02/07/21 8:23 AM) Temperature Route Oral (02/07/21 8:23 AM) Dry Weight 132.6 kg (02/07/21 8:35 AM) 132.6 kg (02/07/21 8:23 AM) Weight Obtained Via Standing scale (02/07/21 8:23 AM) Dry Weight Obtained Via Standing scale (02/07/21 8:23 AM) Social History Social History Type Response Smoking Status Current every day susanna christensen entered on: 09/14/14 Sex
--- OUTSIDE RECORDS SUMMARY | 2023-06-08 08:04 | XMS_ITS | Continuity of Care Document ---
Author Name Unknown Organization [facility] ter Address [address] [place] [id number]- Care Team Providers Care Marriage Counselor Minister Name Role Phone Not on Staff, PCP Primary Care Physician Unavail able Encounter [facility] Date(s): 04/26/23 - 04/26/[address] [address]- Discharge Disposition: A-D/C Home Attending Physician: Leigh Bynum MD Admitting Physician: Leigh Bynum MD Referring Physician: Not on Staff, Referring MD Allergies, Adverse Reactions, Alerts Substance Reaction Severity Status lithium 1 Tingue swelling/ SOB Persistent Severe Ac tive Geodon 2 body swelling Persistent Severe Active traZODone Restless Persistent Moderate Active 1Throat swelling 2Throat swelling Immunizations Given and Recorded Vaccine Date Status Refusal Reason influenza virus vaccine, inactivated 12/30/21 Give n influenza virus vaccine, inactivated 07/06/20 Give n influenza virus vaccine, inactivated 07/21/19 Qamar rded influenza virus vaccine, inactivated 08/29/18 Give n influenza virus vaccine, inactivated 11/15/15 Qamar rded influenza virus vaccine, inactivated 09/15/14 Give n SARS-CoV-2 (COVID-19) mRNA-1273 vaccine 10/11/21 R ecorded SARS-CoV-2 (COVID-19) Ad26 vaccine 01/26/21 Record ed pneumococcal 23-valent vaccine 08/29/18 Given pneumococcal 23-valent vaccine 06/03/13 Recorded Not Given Vaccine Date Status Refusal Reason pneumococcal 23-valent vaccine 09/15/14 Not Given Patient Refuses Medications gabapentin 400 mg oral capsule 800 mg, 2, capsule, By Mouth, 4 times a day, # 240 capsule, Refills 0, Tot. Refills 0, Maintenance,01/10/22 9:13:00 EDT, Print Requisition, Partial fill upon patient request if the prescription is for a schedule II opioid drug. Start Date: 01/10/22 Status: Ordered LaMICtal 100 mg oral tablet 100 mg, 1, tablet, By Mouth, 2 times a day, Refills 0, Maintenance, 12/14/22 18:04:00 EST, Partial fill upon patient request if the prescription is for a schedule II opioid drug. Start Date: 12/14/22 Status: Ordered methadone 10 mg/5 mL oral solution 85 mL = 170 mg, By Mouth, Daily in AM, 0 Refills, Maintenance, 01/10/22 9:13:00 EDT, Solution, Partial fill upon patient request if the prescription is for a schedule II opioid drug. Start Date: 01/10/22 Status: Ordered mirtazapine 15 mg oral tablet 1 tablet = 15 mg, By Mouth, Daily at bedtime, # 30 tablet, 1 Refills, Maintenance, 11/09/22 9:45:00EST, Tablet, [facility]/pharmacy #[id number], Partial fill upon patient request if the prescription is for a schedule II opioid drug., 173, cm, 11/09/22 9:43:00 EST... Start Date: 11/09/22 Status: Ordered mirtazapine 45 mg oral tablet 1 tablet = 45 mg, By Mouth, Daily in AM, # 30 tablet, 1 Refills, Maintenance, 11/09/22 9:45:00 EST,Tablet, [facility]/pharmacy #1234, Partial fill upon patient request if the prescription is for a scheduleII opioid drug., 173, cm, 11/09/22 9:43:00 EST, Hei... Start Date: 11/09/22 Status: Ordered olanzapine 15 mg oral tablet 1 tablet = 15 mg, By Mouth, Daily at bedtime, # 30 tablet, 1 Refills, Maintenance, 11/09/22 9:45:00EST, Tablet, [facility]/pharmacy #1234, Partial fill upon patient request if the prescription is for a schedule II opioid drug., 173, cm, 11/09/22 9:43:00 EST... Start Date: 11/09/22 Status: Ordered olanzapine 5 mg oral tablet 5 mg, 1, tablet, By Mouth, Daily, PRN, # 30 tablet, Refills 1, Tot. Refills 1, Maintenance, Agitation, 11/09/22 9:45:00 EST, Route to Pharmacy Electronically, [facility]/pharmacy #[id number], Partial fill upon patient request if the prescription is for a schedule... Start Date: 11/09/22 Status: Ordered propranolol 40 mg oral tablet 40 mg, By Mouth, 2 times a day, PRN, # 60 tablet, Refills 0, Tot. Refills 0, Maintenance, Anxiety, 12/14/22 18:03:00 EST, Route to Pharmacy Electronically, [facility]/pharmacy #1234, Partial fill upon patient request if the prescription is for a schedule II... Start Date: 12/14/22 Status: Ordered Problem List Condition Confirmation Course Effective Dates Status H ealth Status Informant Alcohol dependence Confirmed Active Benign essential HTN Confirmed Active Benzodiazepine abuse Confirmed Active Cannabis abuse Confirmed Active Cocaine abuse Confirmed Active Depression Confirmed Active H/O osteomyelitis Confirmed Active Nicotine dependence Confirmed Active Opiate dependence Confirmed Active Severe obesity Confirmed Active Hepatitis C Confirmed Active Weight loss Confirmed Active Results Radiology Reports * Exam Date Time Procedure Performing Provider Status 04/26/23 1:44 PM US Doppler Ext Lower Venous Right Haley son , Estela; Auth (Verified) Notes: (US Doppler Ext Lower Venous Right) Reason For Exam: Pain in limb;Other: RESULT: US Doppler Ext Lower Venous Right US Doppler Ext Lower Venous Right Hx of Present Illness: increasing atraumatic RLE pain.; Reason: Other:; Pain in limb; Clinical Question(s): Thrombus COMPARISON: None IMAGING TECHNIQUE: Ultrasound of the veins from the groin through the calf was performed using grayscale, color, and spectral Doppler ultrasound assessing for complete compressibility and normal flowcharacteristics. FINDINGS: Common femoral vein: Patent. No thrombosis. Femoral vein: Patent. No thrombosis. Popliteal vein: Patent. No thrombosis. Gastrocnemius veins: The visualized portions are patent without evidence of thrombosis. Peroneal veins: The visualized portions are patent without evidence of thrombosis. Posterior tibial veins: The visualized portions are patent without evidence of thrombosis. Contralateral common femoral vein: Patent. No thrombosis. OTHER FINDINGS: None. IMPRESSION: No evidence of deep venous thrombosis. WSN: [id number] Ordering Physician: Leigh Bynum Dictated By: Guanakito Pederson MD Dictated Date/Time: 04/26/23 1:48 pm Reviewed By: Guanakito Pederson MD Signed By: Gaunakito Pederson MD Signed Date/Time: 04/26/23 1:48 pm Transcribed By: NAYELI Transcribed Date/Time: 04/26/23 1:47 pm * Exam Date Time Procedure Performing Provider Status 04/26/23 1:[address] Angio Ext Lower Right Chris Gilbert; Auth (Verified) Notes: (CT Angio Ext Lower Right) Reason For Exam: Pain RESULT: CT Angio Ext Lower Right PROCEDURE: CT Angio Ext Lower Right INDICATION: increasing atraumatic RLE pain.; Reason: Pain; Clinical Question(s): Popliteal Artery Aneurysm; RELEVANT CLINICAL INFORMATION/CLINICAL QUESTION: Popliteal Artery Aneurysm TECHNIQUE: CT angiography of the right lower extremity was performed using contiguous helical images during injection IV contrast. 100 cc of Omnipaque 300 was administered intravenously. One mm axialimages were reconstructed. Sagittal and coronal reformatted images were rendered. High resolution multiplanar, volume rendered and MIP images were created and used to evaluate the abdominal aorta and lower extremity arteries in multiple projections on an independent workstation, with permanent images saved to PACS. Automatic tube current modulation was used to optimize exposure parameters. RADIATION DOSE PARAMETERS: CTDIvol Body: 24.70 mGy, DLP Body: 1327 mGy*cm. COMPARISON: Right foot radiographs from 06/12/2012 and 12/29/2013. FINDINGS: Right side: Common iliac artery: Above the imaging field of view and not evaluated. Internal iliac artery: The visualized branches are patent. External iliac artery: The visualized distal artery is patent. Normal in caliber. Common femoral artery: Patent. Normal caliber. Superficial femoral artery: Patent. Normal caliber. Deep femoral artery: Patent. Normal caliber. Popliteal artery: Patent. Normal caliber and contour. No aneurysm. Anterior tibial artery: Patent to the foot. Tibioperoneal trunk: Patent. Posterior tibial artery: Patent to the foot. Peroneal artery: Patent to the ankle. Dorsalis pedis: Not seen, likely secondary to timing of the IV contrast bolus. Plantar arteries: Not seen, likely secondary to timing of IV contrast bolus. OTHER FINDINGS: Mopper View Findings, Lines and Tubes: None. Reproductive organs: Unremarkable. Visualized portions of the bowel: Unremarkable. No evidence of obstruction. Lymph nodes: No enlarged lymph nodes. Abdominal and pelvic wall: Unremarkable. Lower extremities: Moderate knee joint effusion. Mild soft tissue swelling of the prepatellar soft tissues Bones: No acute abnormality. Degenerative changes of the knee. Likely intra- articular loose body measuring 2.0 x 1.5 cm in the axial plane (image 100, series 401). Healed fracture of the third distalmetatarsal shaft. Degenerative changes of the first and second metatarsophalangeal joints. IMPRESSION: No acute abnormality. No evidence of right popliteal artery aneurysm. I have personally reviewed the images and I agree with this report. WSN: [id number] Ordering Physician: Leigh Bynum Dictated By: Vicky Butler MD Dictated Date/Time: 04/26/23 2:18 pm Reviewed By: John Varela MD Signed By: John Varela MD Signed Date/Time: 04/26/23 2:23 pm Transcribed By: NAYELI Transcribed Date/Time: 04/26/23 1:41 pm Vital Signs Most recent to oldest [Reference Range]: 1 2 3 Height 173 cm (04/26/23 2:20 PM) 173 cm (04/26/23 12:08 PM) 173 cm (04/26/23 10:34 AM) Oxygen Saturation [94-100 %] 99 % (04/26/23 3:54 PM) 99 % (04/26/23 2:20 PM) 96 % (04/26/23 10:34 AM) Pulse Rate [55-90 bpm] 65 bpm (04/26/23 3:54 PM) 69 bpm (04/26/23 2:20 PM) 70 bpm (04/26/23 10:34 AM) Blood Pressure [90-138/55-84 mm Hg] 135/76mm Hg (04/26/23 3:54 PM) 128/78mm Hg (04/26/23 2:20 PM) 110/64mm Hg (04/26/23 10:34 AM) Respiratory Rate [16-30 br/min] 18 br/min (04/26/23 3:54 PM) 20 br/min (04/26/23 2:20 PM) 18 br/min (04/26/23 10:34 AM) Temperature [96.8-100.4 DegF] 97.5 DegF (04/26/23 2:20 PM) 98.1 DegF (04/26/23 10:34 AM) Mode of Delivery (Oxygen) Room air (7/6/23 3:54 PM) Room air (04/26/23 2:20 PM) Room air (04/26/23 10:34 AM) Blood pressure sites Arm, left (04/26/23 3:54 PM) Arm, left (04/26/23 2:20 PM) Arm, left (04/26/23 10:34 AM) Temperature Route Oral (04/26/23 2:20 PM) Oral (04/26/23 10:34 AM) Dry Weight 168 kg (04/26/23 2:20 PM) 168 kg (04/26/23 12:08 PM) 168 kg (04/26/23 10:34 AM) Dry Weight Obtained Via Patient/family s tated (04/26/23 10:34 AM) Social History Social History Type Response Smoking Status 5-9 cigarettes (betw een 1/4 to 1/2 pack)/day in last 30 days; Patient wants NRT during admission No; Type: Cigarettes entered on: 11/03/22 Sex Male Note * Stacey Barbosa NP: PERFORM Event Display: Patient Education Leaflets Authored Date: [id number] [facility] [place] you need a Doctor or Clinic ?? 34 If You Need a Doctor or Clinic ?? Call [facility] PCP Assignment Line to help you find a doctor:?? [phone] ?? Clinics in [place], [place] For a full list of clinics:? [email or web address] ?? [facility]? [address] [phone] [facility]?[address]?[phone] [facility]?[address][phone] [facility]?[address][phone] [facility]?[address] [phone] [facility]?[address][phone] [facility]?[address][phone] [facility]?[address] [phone] [facility]? [address][phone] [facility] social worker?[address][phone] [facility]?[address][phone] [facility]?[address][phone] [facility]?[address][phone] [facility]? [address][phone] [facility]?[address][phone] ? Patient Care team information Care Team Personnel Name: Hector Ann RN Position: [facility] RN Member Role: Primary Care Nurse Name: Chevy Galindo RN Position: [facility] RN Member Role: Primary Care Nurse Name: Peg Vasquez RN Position: [facility] RN Member Role: Primary Care Nurse Name: Andra Jain RN Position: [facility] RN Member Role: Primary Care Nurse Name: Kellie Tsang RN Position: [facility] RN Member Role: Primary Care Nurse Name: Roseanna Angulo RN Position: [facility] RN Member Role: Primary Care Nurse Name: Megan Perez RN Position: [facility] ED RN W/OE and Tasks Member Role: Primary Care Nurse Name: Thea Jean-Baptiste RN Position: [facility] RN Member Role: Primary Care Nurse Name: Kiesha Jean-Baptiste RN Position: [facility] RN Member Role: Primary Care Nurse Name: Not on Staff, PCP Position: [facility] Physician (General Medicine) Member Role: PCP Name: Nohelia Mcclendon RN Position: [facility] RN Member Role: Primary Care Nurse Name: Ebony Reina RN Position: [facility] RN Member Role: Primary Care Nurse Name: Stacey Barbosa NP Position: [facility] Associate Professional Member Role: ED Physician Food Mixer Assembler Address: Address: [address] [place] [address] Name: Leigh Bynum MD Position: [facility] ED Medicine MD Member Role: Admitting Physician Address: Address: [address] [place] [address] Name: Mariusz Diego RN Position: [facility] ED RN W/OE and Tasks Member Role: Patient Care Provider Name: Kasie Hogue Position: [facility] ED TA [facility] Member Role: Brass Roller Care Team Related Persons Name: GREGG MCCALLUM Address: [place] [address] Name: CLEMENCIA PADRON Address: [place] [address] Name: NAHOMY ESCALANTE
--- OUTSIDE RECORDS SUMMARY | 2023-06-08 08:04 | XMS_ITS | Continuity of Care Document ---
Author Name Unknown Organization [facility] Address [address] [place] [address] [address] [place] [address]- Care Team Providers Care Spinning Doffer Name Role Phone Not on Staff, PCP Primary Care Physician Unavail able [place] [facility] [place]18[place] 02/25/21 [facility] [address] [place] [address] Drive [address] [place] [address]- Attending Physician: Hilario Chicas MD Referring Physician: Not on Staff, Referring [...] 12/06/20 16:27:00 EST, Route to Pharmacy Electronically, [facility]/pharmacy #[id number], Partial fill upon [...] FOR ANXIETY Start Date: 11/24/20 Status: Ordered Keflex monohydrate 500 mg oral capsule 1 capsule = 500 mg, By Mouth, 4 times a day, for 5 days, # 20 capsule, 0 Refills, Acute 02/26/21 17:05:00 EDT, 02/21/21 17:05:00 EDT, Capsule, [facility], Partial fill upon patient request if the prescription is for a schedule II opio... Start Date: 02/21/21 Stop Date: 02/26/21 Status: Ordered lamotrigine 100 mg oral tablet 100 mg, 1, tablet, By Mouth, 2 times a day, # 60 tablet, Refills 0, Tot. Refills 0, Maintenance, 12/06/20 16:28:00 EST, Route to Pharmacy Electronically, [facility]/pharmacy #[id number], Partial fill upon patientrequest if the prescription is for a schedule II op... Start Date: 12/06/20 Stop Date: 01/05/21 Status: Ordered mirtazapine 15 mg oral tablet 1 tablet = 15 mg, By Mouth, Daily at bedtime, # 30 tablet, 0 Refills, Maintenance, 12/06/20 16:31:00 EST, Tablet, [facility]/pharmacy #[id number], Partial fill upon patient request if the prescription is for a schedule II opioid drug., 173, cm, 12/06/20 16:12:00 E... Start Date: 12/06/20 Stop Date: 01/05/21 Status: Ordered mirtazapine 45 mg oral tablet 1 tablet = 45 mg, By Mouth, Daily in AM, # 30 tablet, 0 Refills, Maintenance, 12/06/20 16:32:00 EST, Tablet, [facility]/pharmacy #[id number], Partial fill upon patient request if the prescription is for a schedule II opioid drug., 173, cm, 12/06/20 16:12:00 EST, H... Start Date: 12/06/20 Stop Date: 01/05/21 Status: Ordered olanzapine 10 mg oral tablet 10 mg, 1, tablet, By Mouth, Daily at bedtime, # 30 tablet, Refills 0, Tot. Refills 0, Maintenance, 12/06/20 16:32:00 EST, Route to Pharmacy Electronically, [facility]/pharmacy #[id number], Partial fill upon [...] oldest [Reference Range]: 1 Height 174 cm (02/18/21 8:24 AM) Temperature [96.8-100.4 DegF] 96.8 DegF (02/18/21 8:24 AM) Social History Social History Type Response Smoking Status Current every day susanna christensen entered on: 09/14/14 Sex Male
--- OUTSIDE RECORDS SUMMARY | 2023-06-08 08:04 | XMS_ITS | Continuity of Care Document ---
Author Name Unknown Organization [facility] Address Unknown Care Team Providers Care Line Assembly Utility Worker Name Role Phone Not on Staff, PCP Primary Care Physician Unavail able [place] [facility] 06/23/21 [facility] Allergies, Adverse Reactions, Alerts Substance Reaction Severity [...] 12/06/20 16:27:00 EST, Route to Pharmacy Electronically, [facility]/pharmacy #[id number], Partial fill upon patient request if the prescription is for a... Start Date: 12/06/20 Stop Date: 12/16/20 Status: Ordered Flomax 0.4 mg oral capsule 0.8 mg, 2, capsule, By Mouth, Daily at bedtime, # 60 capsule, Refills 1, Tot. Refills 1, Maintenance, 04/27/21 13:05:00 EDT, Route to Pharmacy Electronically, [facility], Partial fill upon patient request if the prescription is for a schedul... Start Date: 04/27/21 Status: Ordered gabapentin 800 mg oral tablet 1 tablet = 800 mg, By Mouth, 4 times a day, # 120 tablet, 0 Refills, Maintenance, 12/06/20 16:28:00EST, [facility]/pharmacy #[id number], Partial fill upon patient request if [...] 12/06/20 16:28:00 EST, Route to Pharmacy Electronically, [facility]/pharmacy #[id number], Partial fill upon patientrequest if the [...] 0 Refills, Maintenance, 12/06/20 16:31:00 EST, Tablet, [facility]/pharmacy #[id number], Partial fill upon patient request if the prescription is for a schedule II opioid drug., lesley Smith, 12/06/20 16:12:00 E... Start Date: 12/06/20 Stop Date: 01/05/21 Status: Ordered mirtazapine 45 mg oral tablet 1 tablet = 45 mg, By Mouth, Daily in AM, # 30 tablet, 0 Refills, Maintenance, 12/06/20 16:32:00 EST, Tablet, [facility]/pharmacy #[id number], Partial fill upon patient request if the prescription is for a schedule II opioid drug., lesley Smith, 12/06/20 16:12:00 EST, H... Start Date: 12/06/20 Stop Date: 01/05/21 Status: Ordered olanzapine 10 mg oral tablet See Instructions, 1 tablet By Mouth Daily at bedtime, 1/2 tab daily in AM, # 45 tablet, Refills 1, Tot. Refills 1, Maintenance, 04/27/21 13:04:00 EDT, Instructions Replace Required Details, Route to Pharmacy Electronically, [facility], Parti... Start Date: 04/27/21 Status: Ordered oxybutynin 10 mg/24 hr oral tablet, extended release 1 tablet = 10 mg, By Mouth, Daily, # 30 tablet, 1 Refills, Maintenance, 04/27/21 13:05:00 EDT, ER Tablet, [facility], Partial fill upon patient request if [...]
--- OUTSIDE RECORDS SUMMARY | 2023-06-08 08:04 | XMS_ITS | Continuity of Care Document ---
Author Name Unknown Organization [facility] Address [address] [place] [address] [address] [place] [address]- Care Team Providers Care Hydrometer Finisher Name Role Phone Not on Staff, PCP Primary Care Physician Unavail able [place] [facility] [place]21 [facility] [address] [place], [place] [address] Attending Physician: Jolly Esparza Allergies, Adverse Reactions, [...] 12/06/20 16:27:00 EST, Route to Pharmacy Electronically, [facility]/pharmacy #[id number], Partial fill upon patient request if the prescription is for a... Start Date: 12/06/20 Stop Date: 12/16/20 Status: Ordered Flomax 0.4 mg oral capsule 0.8 mg, 2, capsule, By Mouth, Daily at bedtime, # 60 capsule, Refills 1, Tot. Refills 1, Maintenance, 04/27/21 13:05:00 EDT, Route to Pharmacy Electronically, [facility], Partial fill upon patient request if the prescription is for a schedul... Start Date: 04/27/21 Status: Ordered gabapentin 800 mg oral tablet 1 tablet = 800 mg, By Mouth, 4 times a day, # 120 tablet, 0 Refills, Maintenance, 12/06/20 16:28:00EST, [facility]/pharmacy #[id number], Partial fill upon patient request if [...] 12/06/20 16:28:00 EST, Route to Pharmacy Electronically, [facility]/pharmacy #[id number], Partial fill upon patientrequest if the prescription is for a schedule II op... Start Date: 12/06/20 Stop Date: 01/05/21 Status: Ordered mirtazapine 15 mg oral tablet 1 tablet = 15 mg, By Mouth, Daily at bedtime, # 30 tablet, 0 Refills, Maintenance, 12/06/20 16:31:00 EST, Tablet, [facility]/pharmacy #[id number], Partial fill upon patient request if the prescription is for a schedule II opioid drug., lesley Smith, 12/06/20 16:12:00 E... Start Date: 12/06/20 Stop Date: 01/05/21 Status: Ordered mirtazapine 45 mg oral tablet 1 tablet = 45 mg, By Mouth, Daily in AM, # 30 tablet, 0 Refills, Maintenance, 12/06/20 16:32:00 EST, Tablet, [facility]/pharmacy #[id number], Partial fill upon patient request if [...] Replace Required Details, Route to Pharmacy Electronically, [facility], Parti... Start Date: 04/27/21 Status: Ordered oxybutynin 10 mg/24 hr oral tablet, extended release 1 tablet = 10 mg, By Mouth, Daily, # 30 tablet, 1 Refills, Maintenance, 04/27/21 13:05:00 EDT, ER Tablet, [facility], Partial fill upon patient request if [...]
--- OUTSIDE RECORDS SUMMARY | 2023-06-08 08:04 | XMS_ITS | Continuity of Care Document ---
Author Name Unknown Organization [facility] Address [address] [place] [id number]- Care Team Providers Care Clinical Athletic Instructor Name Role Phone Not on Staff, PCP Primary Care Physician Unavail able Encounter [facility] Date(s): 09/28/21 - 09/29/[address] [address]- Encounter Diagnosis Suicide ideation(Final) - 09/28/21 Discharge Disposition: Transfer to Psych Facility Attending Physician: Jackie Macias MD Admitting Physician: Jackie Macias MD Referring Physician: Not on Staff, Referring [...] 12/06/20 16:27:00 EST, Route to Pharmacy Electronically, [facility]/pharmacy #[id number], Partial fill upon patient request if the prescription is for a... Start Date: 12/06/20 Stop Date: 12/16/20 Status: Ordered Flomax 0.4 mg oral capsule 0.8 mg, 2, capsule, By Mouth, Daily at bedtime, # 60 capsule, Refills 1, Tot. Refills 1, Maintenance, 04/27/21 13:05:00 EDT, Route to Pharmacy Electronically, [facility], Partial fill upon patient request if the prescription is for a schedul... Start Date: 04/27/21 Status: Ordered gabapentin 800 mg oral tablet 1 tablet = 800 mg, By Mouth, 4 times a day, # 120 tablet, 0 Refills, Maintenance, 12/06/20 16:28:00EST, [facility]/pharmacy #[id number], Partial fill upon patient request if [...] 12/06/20 16:28:00 EST, Route to Pharmacy Electronically, [facility]/pharmacy #[id number], Partial fill upon patientrequest if the prescription is for a schedule II op... Start Date: 12/06/20 Stop Date: 01/05/21 Status: Ordered methadone 10 mg oral tablet 160 mg, Tablet, By Mouth, 09/29/21 9:00:00 EST Start Date: 09/29/21 Stop Date: 09/29/21 Status: Completed methadone 10 mg/5 mL oral solution 80 [...] 0 Refills, Maintenance, 12/06/20 16:31:00 EST, Tablet, [facility]/pharmacy #[id number], Partial fill upon patient request if the prescription is for a schedule II opioid drug., 173, cm, 12/06/20 16:12:00 E... Start Date: 12/06/20 Stop Date: 01/05/21 Status: Ordered mirtazapine 45 mg oral tablet 1 tablet = 45 mg, By Mouth, Daily in AM, # 30 tablet, 0 Refills, Maintenance, 12/06/20 16:32:00 EST, Tablet, [facility]/pharmacy #[id number], Partial fill upon patient request if [...] Replace Required Details, Route to Pharmacy Electronically, [facility], Parti... Start Date: 04/27/21 Status: Ordered oxybutynin 10 mg/24 hr oral tablet, extended release 1 tablet = 10 mg, By Mouth, Daily, # 30 tablet, 1 Refills, Maintenance, 04/27/21 13:05:00 EDT, ER Tablet, [facility], Partial fill upon patient request if [...] Active Nicotine dependence(Confirmed) Active Opiate dependence(Confirmed) Active Severe obesity(Confirmed) Active Hepatitis C(Confirmed) Active Weight loss(Confirmed) Active Vital Signs Most recent to oldest [Reference Range]: 1 2 3 Height 173 cm (09/29/21 6:56 AM) 173 cm (09/28/21 10:00 PM) 173 cm (09/28/21 2:00 PM) Weight 120.45 kg (09/29/21 6:56 AM) 120.45 kg (09/28/21 10:00 PM) 120.45 kg (09/28/21 2:00 PM) Oxygen Saturation [94-100 %] 99 % (09/29/21 9:00 AM) 100 % (09/29/21 6:56 AM) 100 % (09/28/21 10:00 PM) Pulse Rate [55-90 bpm] 58 bpm (09/29/21 9:00 AM) 50 bpm *L* (09/29/21 6:56 AM) 51 bpm *L* (09/28/21 10:00 PM) Body Mass Index [18.5-24.99] 40.25 *>HHI* (09/29/21 6:56 AM) 40.25 *>HHI* (09/28/21 10:00 PM) Blood Pressure [90-138/55-84 mm Hg] 115/57mm Hg (09/29/21 9:00 AM) 140/89mm Hg *H* (09/29/21 6:56 AM) 136/94mm Hg (09/28/21 10:00 PM) Respiratory Rate [16-30 br/min] 18 br/min (09/29/21 10:02 AM) 17 br/min (09/29/21 9:02 AM) 18 br/min (09/29/21 6:56 AM) Temperature [96.8-100.4 DegF] 98.3 DegF (09/29/21 9:00 AM) 97.5 DegF (09/29/21 6:56 AM) 97.6 DegF (09/28/21 10:00 PM) Mode of Delivery (Oxygen) Room air (09/29/21 9:00 AM) Room air (09/29/21 6:56 AM) Room air (09/28/21 10:00 PM) Blood pressure sites Arm, right (09/29/21 9:00 AM) Arm, right (09/29/21 6:56 AM) Arm, right (09/28/21 10:00 PM) Temperature Route Oral (09/29/21 9:00 AM) Oral (09/29/21 6:56 AM) Oral (09/28/21 10:00 PM) Dry Weight 120.45 kg (09/29/21 6:56 AM) 120.45 kg (09/28/21 10:00 PM) 120.45 kg (09/28/21 2:00 PM) Social History Social History Type Response Smoking Status Current every day susanna christensen entered on: 09/14/14 Sex Male
--- OUTSIDE RECORDS SUMMARY | 2023-06-08 08:04 | XMS_ITS | Continuity of Care Document ---
Author Name Unknown Organization [facility] ter Address [address] [place] [address]- Care Team Providers Care Technical Support Intern Name Role Phone Simon Howell MD Primary Care Physician Encounter [facility] Date(s): 10/09/19 - 10/09/19 [facility] [address] [place] [address]- [facility] Discharge Disposition: A-D/C Walkout Attending Physician: Not on Staff, Attending MD Admitting Physician: Not on Staff, Admitting MD Referring Physician: Not on Staff, Referring MD Allergies, Adverse Reactions, Alerts Substance Reaction Severity Status lithium 1 Persistent Severe Active Geodon 2 Persistent Severe Active 1Throat swelling 2Throat swelling Immunizations Given and Recorded Vaccine Date Status Refusal Reason influenza virus vaccine, inactivated 08/29/18 Give n influenza virus vaccine, inactivated 09/15/14 Give n pneumococcal 23-valent vaccine 08/29/18 Given Not Given Vaccine Date Status Refusal Reason pneumococcal 23-valent vaccine 09/15/14 Not Given Patient Refuses Medications cloNIDine 0.1 mg oral tablet 0.1 mg, By Mouth, 3 times a day, for anxiety, # 15 tablet, Refills 3, Tot. Refills 3, Maintenance, 01/21/19 9:11:13 EDT, Route to Pharmacy Electronically, [id number], [facility]/pharmacy #[id number] Start Date: 01/21/19 Status: Ordered cloNIDine 0.1 mg oral tablet 0.1 mg, By Mouth, 3 times a day, # 90 capsule, Refills 0, Tot. Refills 0, Maintenance, 07/07/19 10:58:21 EDT, Do Not Route Start Date: 07/07/19 Status: Ordered Colace sodium 100 mg oral capsule 100 mg, 1, capsule, By Mouth, 2 times a day, # 60 capsule, Refills 0, Tot. Refills 0, Maintenance, 07/07/19 10:58:41 EDT, Route to Pharmacy Electronically, [id number], [facility]/pharmacy #1026 Start Date: 07/07/19 Status: Ordered gabapentin 400 mg oral capsule 400 mg, By Mouth, 4 times a day, # 120 capsule, Refills 0, Tot. Refills 0, Maintenance, 07/07/19 10:59:10 EDT, Do Not Route Start Date: 07/07/19 Status: Ordered hydrOXYzine hydrochloride 50 mg oral tablet See Instructions, PRN for anxiety, take one and half tablets ( 75 mg ) daily in morning and 1 tablet ( 50 mg )up to twice daily as needed for anxiety, # 20 tablet, 3 Refills, Maintenance, 01/21/19 9:13:25 EDT, Tablet Start Date: 01/21/19 Status: Ordered methadone 10 mg oral tablet By Mouth, Daily before breakfast, 0 Refills, Maintenance, 07/07/19 11:03:32 EDT, Tablet, Partial fill upon patient request Start Date: 07/07/19 Status: Ordered olanzapine 10 mg oral tablet 10 mg, By Mouth, Daily at bedtime, # 30 capsule, Refills 0, Tot. Refills 0, Maintenance, 07/07/19 11:00:50 EDT, Route to Pharmacy Electronically, [id number], [facility]/pharmacy #1026 Start Date: 07/07/19 Status: Ordered oxybutynin 10 mg/24 hr oral tablet, extended release = 10 mg, By Mouth, Daily at bedtime, # 30 capsule, 0 Refills, Maintenance, 07/07/19 11:00:32 EDT, ER Tablet Start Date: 07/07/19 Status: Ordered pravastatin 20 mg oral tablet 20 mg, By Mouth, Daily, for hyperlipidemia, # 10 tablet, Refills 3, Tot. Refills 3, Maintenance, 07/07/19 10:57:12 EDT, Route to Pharmacy Electronically, [id number], [facility]/pharmacy #1026 Start Date: 07/07/19 Status: Ordered ProAir HFA 90 mcg/inh inhalation aerosol with adapter 1, puffs, Inhalation, Every 6 hours, PRN, # 8.5 Gm, Refills 0, Tot. Refills 0, Maintenance, 07/07/19 10:58:02 EDT, Aerosol, Route to Pharmacy Electronically, [id number], [facility]acy #[id number] Start Date: 07/07/19 Status: Ordered Problem List Condition Effective Dates Status Health Status Inform ant Alcohol dependence(Confirmed) Active Benign essential HTN(Confirmed) Active Benzodiazepine abuse(Confirmed) Active Cannabis abuse(Confirmed) Active Cocaine abuse(Confirmed) Active Depression(Confirmed) Active H/O osteomyelitis(Confirmed) Active Nicotine dependence(Confirmed) Active Opiate dependence(Confirmed) Active Hepatitis C(Confirmed) Active Weight loss(Confirmed) Active Vital Signs Most recent to oldest [Reference Range]: 1 2 Oxygen Saturation [94-100 %] 97 % (10/09/19 9:32 AM) 99 % (10/09/19 9:19 AM) Pulse Rate [55-90 bpm] 57 bpm (10/09/19 9:32 AM) 70 bpm (10/09/19 9:19 AM) Blood Pressure [90-138/55-84 mm Hg] 141/ 84mm Hg *H* (10/09/19 9:32 AM) Respiratory Rate [16-30 br/min] 20 br/mi n (10/09/19 9:32 AM) 20 br/min (10/09/19 9:19 AM) Temperature [96.8-100.4 DegF] 97.7 DegF (10/09/19 9:32 AM) Mode of Delivery (Oxygen) Room air (10/09/19 9:32 AM) Room air (10/09/19 9:19 AM) Temperature Route Oral (10/09/19 9:32 AM) Social History Social History Type Response Smoking Status Current every day susanna christensen entered on: 09/14/14 Sex
--- OUTSIDE RECORDS SUMMARY | 2023-06-08 08:04 | XMS_ITS | Continuity of Care Document ---
Author Name Unknown Organization [facility] Address [address] [place] [address] [address] [place] [address]- Care Team Providers Care Hvac Sales Engineer Name Role Phone Not on Staff, PCP Primary Care Physician Unavail able Encounter [facility] Date(s): 03/07/21 - 03/14/21 [facility] [address] [place] [address] Drive [address] [place], [place] [address] Attending Physician: Hilario Chicas MD Allergies, Adverse Reactions, Alerts Substance Reaction [...] 16:27:00 EST, Route to Pharmacy Electronically, [facility]/pharmacy #[id number], Partial fill upon patient request if the prescription is for a... Start Date: 12/06/20 Stop Date: 12/16/20 Status: Ordered gabapentin 800 mg oral tablet 1 tablet = 800 mg, By Mouth, 4 times a day, # 120 tablet, 0 Refills, Maintenance, 12/06/20 16:28:00EST, [facility]/pharmacy #1026, Partial fill upon patient request if [...] 16:28:00 EST, Route to Pharmacy Electronically, [facility]/pharmacy #1026, Partial fill upon patientrequest if the [...] Refills, Maintenance, 12/06/20 16:32:00 EST, Tablet, [facility]/pharmacy #1026, Partial fill upon patient request if [...]
--- OUTSIDE RECORDS SUMMARY | 2023-06-08 08:04 | XMS_ITS | Continuity of Care Document ---
Author Name Unknown Organization [facility] ter Address [address] [place] [address]- Care Team Providers Care Developmental Therapist Name Role Phone Not on Staff, PCP Primary Care Physician Unavail able Encounter [facility] Date(s): 05/17/23 - 05/17/[address] [address]- Discharge Disposition: A-D/C Home Attending Physician: Leigh [...] tablet, 1 Refills, Maintenance, 11/09/22 9:45:00EST, Tablet, [facility]/pharmacy #1234, Partial fill upon patient request if the prescription is for a schedule II opioid drug., 173, cm, 11/09/22 9:43:00 EST... Start Date: 11/09/22 Status: Ordered mirtazapine 45 mg oral tablet 1 tablet = 45 mg, By Mouth, Daily in AM, # 30 tablet, 1 Refills, Maintenance, 11/09/22 9:45:00 EST,Tablet, [facility]/pharmacy #1234, Partial fill upon patient request if [...] 11/09/22 9:45:00 EST, Route to Pharmacy Electronically, [facility]/pharmacy #1234, Partial fill upon patient request if the prescription is for a schedule... Start Date: 11/09/22 Status: Ordered propranolol 40 mg oral tablet 40 mg, By Mouth, 2 times a day, PRN, # 60 tablet, Refills 0, Tot. Refills 0, Maintenance, Anxiety, 12/14/22 18:03:00 EST, Route to Pharmacy Electronically, [facility]/pharmacy #1234, Partial fill upon patient request if [...] Exam Date Time Procedure Performing Provider Status 05/17/23 12:06 PM Knee 1 or 2 Views Right Isra Lara e; Auth (Verified) Notes: (Knee 1 or 2 Views Right) Reason For Exam: Trauma RESULT: Knee 1 or 2 Views Right Knee 1 or 2 Views Right, 2 views Hx of Present Illness: pt c o R knee pain x weeks. RLE gave out while walking resulting in fall. pt c o pain and burning at R knee radiating up into R thigh and behind R knee.; Reason: Trauma; Clinical Question(s): Fracture COMPARISON: 02/21/2011 FINDINGS: No acute fracture. Moderate tricompartmental degenerative osteoarthritis. This is progressed from 2010. There is intra-articular joint body, unchanged. Moderate knee joint effusion. IMPRESSION: Tricompartmental degenerative changes. No acute fracture. WSN: [id number] Ordering Physician: Racquel Justin Dictated By: Yeimy Delarosa MD Dictated Date/Time: 05/17/23 12:30 p Reviewed By: Yeimy Delarosa MD Signed By: Yeimy Delarosa MD Signed Date/Time: 05/17/23 12:30 pm Transcribed By: NAYELI Transcribed Date/Time: 05/17/23 12:29 pm Vital Signs Most recent to oldest [Reference Range]: 1 2 Height 173 cm (05/17/23 11:33 AM) 173 cm (05/17/23 11:06 AM) Weight 168 kg (05/17/23 11:33 AM) 168 kg (05/17/23 11:06 AM) Oxygen Saturation [94-100 %] 96 % (05/17/23 12:46 PM) 96 % (05/17/23 11:06 AM) Pulse Rate [55-90 bpm] 71 bpm (05/17/23 12:46 PM) 73 bpm (05/17/23 11:06 AM) Body Mass Index [18.5-24.99 kg/m2] 56.13 kg/m2 *>HHI* (05/17/23 11:06 AM) Blood Pressure [90-138/55-84 mm Hg] 114/ 50mm Hg (05/17/23 12:46 PM) 111/63mm Hg (05/17/23 11:06 AM) Respiratory Rate [16-30 br/min] 18 br/mi n (05/17/23 12:46 PM) 18 br/min (05/17/23 11:06 AM) Temperature [96.8-100.4 DegF] 97.4 DegF (05/17/23 12:46 PM) 98.2 DegF (05/17/23 11:06 AM) Mode of Delivery (Oxygen) Room air (05/17/23 12:46 PM) Room air (05/17/23 11:06 AM) Blood pressure sites Arm, left (05/17/23 12:46 PM) Arm, right (05/17/23 11:06 AM) Temperature Route Oral (05/17/23 12:46 PM) Oral (05/17/23 11:06 AM) Dry Weight 168 kg (05/17/23 11:33 AM) 168 kg (05/17/23 11:06 AM) Weight Obtained Via Patient/family state d (05/17/23 11:06 AM) Dry Weight Obtained Via Patient/family s tated (05/17/23 11:06 AM) Social History Social History Type Response Smoking Status 5-9 cigarettes (betw een 1/4 to 1/2 pack)/day in last 30 days; Patient wants NRT during admission No; Type: Cigarettes entered on: 11/03/22 Sex Male Note * Racquel Reed M: PERFORM, SIGN, VERIFY Event Display: Patient Education Handout Authored Date: [id number] * Racquel Reed: PERFORM Event Display: Patient Education Leaflets Authored Date: [id number] Multiple Documents ?? [id number] RICE Rest an injury, elevate it, and use ice and compression as directed. RICE stands for rest, ice, compression, and elevation. These can limit pain and swelling after an injury. RICE may be recommended to help treat breaks (fractures), sprains, strains, and bruises or bumps.?? Home care Here are??the details of RICE: ??? Rest. Limit the use of the injured body part. This helps preventfurther damage to the body part and gives it time to heal. In some cases, you may need a sling, brace, splint, or cast to help keep the body part still until it has healed. ??? Ice. Applying ice right after an injury helps relieve pain and swelling. To make an ice pack, put ice cubes in a plastic bag that seals at the top. Wrap the bag in a clean, thin towel or cloth.??Then place it over the injured area. Do this for 15 to 20 minutes every??2 to 3??hours. Continue for the next 1 to 2 days or until your symptoms improve. Never put ice directly on your skin.??Don't ice an area longer than 20 minutes at a time. ??? Compression. Putting pressure on an injury helps reduce swelling and provides support. Wrap the injured area firmly with an elastic bandage or??wrap. Make sure not to wrap the bandage too tightly or you will cut off blood flow to the injured area. If your bandage loosens, rewrapit. ??? Elevation. Keeping an injury raised or elevated??above the level of your heart reduces swelling, pain, and throbbing. For instance, if you have a broken leg, it may help to rest your leg on several pillows when sitting or lying down. Try to keep the injured area elevated as often as possible. ?? Follow-up care Follow up with your healthcare provider as advised. ?? When to seek medical advice Call your healthcare provider right away??if any of these occur: ??? Fever of 100.4??F (38??C) or higher, or as directed by your healthcare provider ??? Chills ??? Increased pain or swelling in the injured body part ??? Injured body part becomes cold, blue, numb, or tingly ??? Signs of infection. These include warmth in the skin, redness, drainage, or bad smell coming from the injured body part. ??? New symptoms ?? Last Reviewed Date: 2022 ?? [employer]. All rights reserved. This information is not intended as a substitute for professional medical care. Always follow your healthcare professional's instructions. ?? * Margoth CHANEY, Racquel Ramirez: PERFORM Event Display: Patient Education Leaflets Authored Date: [id number] Multiple Documents ?? [id number] Knee Pain with Uncertain Cause Knee pain has several common causes. These can include: ??? A sprain of the ligaments that support the joint ??? An injury to the cartilage lining of the joint ??? Arthritis from ubeb-qzx-koln or inflammation There are other causes as well. You may have swelling, reduced movement of the knee joint, and painwith walking. A definite diagnosis will still need to be made. If your symptoms don't get better, you may need further follow-up and testing. Home care ??? Stay off the injured leg as much as possible until pain improves. ??? Apply an ice pack over the injured area for 15 to 20 minutes every 3 to 6 hours. Do this for the first 24 to 48 hours. You can make an ice pack by filling a plastic bag that seals at the top with ice cubes and then wrapping it with a thin towel. Continue to use ice packs for relief of pain and swelling as needed. As the ice melts, be careful not to get your wrap, splint, or cast wet. After 48 hours, apply heat (warm shower or warm bath) for 15 to 20 minutes several times a day, or alternate ice and heat. If you have to wear a qlyo-hnb-zegc knee brace, you can open it to apply the ice pack, or heat, directly to the knee. Never put ice directly on the skin. Always wrap the ice in a towel or other type of cloth. ??? You may use hkwr-frs-hdnnczr pain medicine to control pain, unless another pain medicine wasprescribed. Talk with your healthcare provider before using these medicines if you have chronic liver or kidney disease. Also talk with your provider if you have had a stomach ulcer or digestive bleeding or take a blood thinner.. ??? If crutches or a walker have been recommended, don't put weight on the injured leg until you can do so without pain. Check with your healthcare provider before returning to sports or full work duties. ??? If you have a suyi-snb-ypta knee brace, you can remove it tobathe and sleep, unless told otherwise. ?? Follow-up care Follow up with your healthcare provider as advised. This is usually within 1 to 2 weeks. If X-rays were taken, you will be told of any new findings that may affect your care ?? Call 911 Call 911 if you have: ??? Shortness of breath ??? Chest pain ?? When to seek medical advice Call your healthcare provider right away if any of these occur: ??? Toes or foot becomes swollen, cold, blue, numb, or tingly ??? Pain or swelling spreads over the knee or calf ??? Warmth or redness appears over the knee or calf ??? Other joints become painful ??? Rash appears ??? Fever of 100.4??F(38??C) or higher, or as directed by your healthcare provider ??? Chills ?? Last Reviewed Date: 2021 ?? 6964-1376 [employer]. All rights reserved. This information is not intended as a substitute for professional medical care. Always follow your healthcare professional's instructions. ?? Patient Care team information Care Team Personnel Name: Hector Ann RN Position: [facility] RN Member Role: Primary Care Nurse Name: Chevy Galindo RN Position: [facility] RN Member Role: Primary Care Nurse Name: Peg Vasquez RN Position: [facility] RN Member Role: Primary Care Nurse Name: Andra Jain RN Position: [facility] RN Member Role: Primary Care Nurse Name: Kellie Tsang RN Position: [facility] RN Member Role: Primary Care Nurse Name: Roseanna Angulo RN Position: S RN Member Role: Primary Care Nurse Name: Megan Perez RN Position: [facility] PRERNA RN W/OE and Tasks Member Role: Primary Care Nurse Name: Thea Jean-Baptiste RN Position: [facility] RN Member Role: Primary Care Nurse Name: Kiesha Jean-Baptiste RN Position: [facility] RN Member Role: Primary Care Nurse Name: Not on Staff, PCP Position: [facility] Physician (General Medicine) Member Role: PCP Name: Nohelia Mcclendon RN Position: [facility] RN Member Role: Primary Care Nurse Name: Ebony Reina RN Position: [facility] RN Member Role: Primary Care Nurse Name: Tiffany Gonzales RN Position: [facility] ED RN W/OE and Tasks Member Role: Patient Care Provider Name: Racquel Reed Position: [facility] Associate Professional Member Role: ED Physician [employer] Address: Address: [address] [place] [address] Name: Leigh Bynum MD Position: [facility] ED Medicine MD Member Role: Admitting Physician Address: Address: [address] [place] [address] Name: Kasie David RN Position: [facility] ED RN W/OE and Tasks Name: Nir Hurtado Position: [facility] ED TA [facility] Member Role: Language Path Care Team Related Persons Name: GREGG MCCALLUM Address: [place] [address] Name: CLEMENCIA PADRON Address: [place] [address] Name: NAHOMY ESCALANTE
--- OUTSIDE RECORDS SUMMARY | 2023-06-08 08:04 | XMS_ITS | Continuity of Care Document ---
Author Name Unknown Organization [facility] Address [address] [place] [address] [address] [place] [address]- Care Team Providers Care Spar Machine Operator Helper Name Role Phone Not on Staff, PCP Primary Care Physician Unavail able Encounter [facility] Date(s): 02/18/21 - 03/20/21 [facility] [address] [place] [address] Drive [address] [place], [place] [address] Attending Physician: Admtr, Nayana Admitting Physician: Admtr, Ar8 Referring Physician: Admtr, Ar8 Allergies, Adverse Reactions, [...] 12/06/20 16:27:00 EST, Route to Pharmacy Electronically, [facility]/pharmacy #[id number], Partial fill upon [...] 12/06/20 16:28:00 EST, Route to Pharmacy Electronically, [facility]/pharmacy #[id number], Partial fill upon [...] 0 Refills, Maintenance, 12/06/20 16:32:00 EST, Tablet, [facility]/pharmacy #[id number], Partial fill upon patient request if the prescription is for a schedule II opioid drug., 173, cm, 12/06/20 16:12:00 EST, H... Start Date: 12/06/20 Stop Date: 01/05/21 Status: Ordered olanzapine 10 mg oral tablet 10 mg, 1, tablet, By Mouth, Daily at bedtime, # 30 tablet, Refills 0, Tot. Refills 0, Maintenance, 12/06/20 16:32:00 EST, Route to Pharmacy Electronically, [facility]/pharmacy #[id number], Partial fill upon [...]
--- OUTSIDE RECORDS SUMMARY | 2023-06-08 08:04 | XMS_ITS | Continuity of Care Document ---
Author Name Unknown Organization [facility] ter Address [address] [place] [id number]- Care Team Providers Care Shovel Logger Name Role Phone Aurelio Carey MD Primary Care Physician [place] [facility] [place] 06/04/23 - 06/04/[address] [address]- Encounter Diagnosis Nausea & vomiting(Final) - 06/04/23 Discharge Disposition: A-D/C Home Attending Physician: Herbert [...] 08/29/18 Given pneumococcal 23-valent vaccine 06/03/13 Recorded Medications gabapentin 400 mg oral capsule 800 [...] tablet, 1 Refills, Maintenance, 11/09/22 9:45:00EST, Tablet, [facility]/pharmacy #[id number], Partial fill upon patient request if the prescription is for a schedule II opioid drug., 173, cm, 11/09/22 9:43:00 EST... Start Date: 11/09/22 Status: Ordered mirtazapine 45 mg oral tablet 1 tablet = 45 mg, By Mouth, Daily in AM, # 30 tablet, 1 Refills, Maintenance, 11/09/22 9:45:00 EST,Tablet, [id number], Partial fill upon patient request [...] 11/09/22 9:45:00 EST, Route to Pharmacy Electronically, [id number], Partial fill upon patient request if the prescription is for a schedule... Start Date: 11/09/22 Status: Ordered ondansetron 4 mg oral tablet 1 tablet = 4 mg, By Mouth, Every 8 hours, PRN Nausea & Vomiting, # 10 tablet, 0 Refills, Acute 06/07/23 15:41:00 EDT, 06/04/23 15:40:00 EDT, Tablet, [facility]-[id number], Partial fill upon patient request if the prescription is for a tien... Start Date: 06/04/23 Stop Date: 06/07/23 Status: Ordered propranolol 40 mg oral tablet 40 mg, By Mouth, 2 times a day, PRN, # 60 tablet, Refills 0, Tot. Refills 0, Maintenance, Anxiety, 12/14/22 18:03:00 EST, Route to Pharmacy Electronically, [facility]/pharmacy #[id number], Partial fill upon patient request [...] C Confirmed Active Weight loss Confirmed Active Vital Signs Most recent to oldest [Reference Range]: 1 2 3 Height 173 cm (06/04/23 4:12 PM) 173 cm (06/04/23 1:23 PM) 173 cm (06/04/23 10:45 AM) Weight 170 kg (06/04/23 4:12 PM) 170 kg (06/04/23 1:23 PM) 170 kg (06/04/23 10:45 AM) Oxygen Saturation [94-100 %] 97 % (06/04/23 10:45 AM) Pulse Rate [55-90 bpm] 84 bpm (06/04/23 10:45 AM) Body Mass Index [18.5-24.99 kg/m2] 56.8 kg/m2 *>HHI* (06/04/23 10:45 AM) Blood Pressure [90-138/55-84 mm Hg] 128/71mm Hg (06/04/23 10:45 AM) Respiratory Rate [16-30 br/min] 18 br/min (06/04/23 10:45 AM) Temperature [96.8-100.4 DegF] 97.9 DegF (06/04/23 10:45 AM) Mode of Delivery (Oxygen) Room air (06/04/23 10:45 AM) Blood pressure sites Arm, left (06/04/23 10:45 AM) Social History Social History Type Response Smoking Status 5-9 cigarettes (betw een 1/4 to 1/2 pack)/day in last 30 days; Patient wants NRT during admission No; Type: Cigarettes entered on: 11/03/22 Sex Male EKG study * Event Display: ECG 12-Lead Authored Date: [id number] Please click on pdf link to open report * Event Display: ECG 12-Lead Authored Date: [id number] Ventricular Rate: 71 BPM Atrial Rate: 71 BPM P-R Interval: 164 ms QRS Duration: 90 ms Q-T Interval: 410 ms QTC Calculation(Bazett): 445 ms P [place]: 17 degrees R [place]: 52 degrees T [place]: 24 degrees Normal sinus rhythm Normal ECG When compared with ECG of 26-APR-2023 11:32, No significant change was found Confirmed by THERESA WU ([id number]) on 06/04/2023 1:13:13 PM [place]: THERESA WU Note * Trish White: PERFORM Event Display: Patient Education Leaflets Authored Date: [id number] Viral Gastroenteritis (Adult) ?? [id number] Viral Gastroenteritis (Adult) Gastroenteritis is often called the stomach flu. But it has nothing to do with influenza. It's mostoften caused by a virus that affects the stomach and intestinal tract. Most bouts last from 2 to 7 days. Common viruses causing gastroenteritis include norovirus, rotavirus, and hepatitis A. Nonviralcauses of gastroenteritis include bacteria, parasites, and toxins. The danger from repeated vomiting or diarrhea is dehydration. This is when the body loses too??muchfluid. When this occurs, you must replace the body fluids. Antibiotics aren't an effective treatment for this condition because it's caused by a virus. Symptoms of viral gastroenteritis may include: ??? Watery, loose stools ??? Stomach pain or belly (abdominal) cramps ??? Fever and chills ??? Nausea and vomiting ??? Loss of bowel control ??? Headache Home care Gastroenteritis is spread by contact with the stool or vomit of an infected person. This can occur from person to person or from contact with a contaminated surface. Follow these guidelines when caring for yourself at home: ??? If symptoms are severe, rest at home for the next 24 hours or until you are feeling better. ???Wash your hands with soap and clean, running water or use alcohol-based movement education specialist to prevent the spread of infection. Wash your hands after touching anyone who is sick. ??? Wash your hands or use alcohol-based movement education specialist after using the toilet and before meals. Clean the toilet after each use. Remember these tips when preparing food: ??? People with diarrhea should not prepare or serve food??to others. When preparing foods, wash your hands before and after. ??? Wash your hands after using cutting boards, counter tops, knives, or utensils??that have been in contact with raw food. ??? Dry your hands with a single-use disposable towel. ??? Keep uncooked meats away from cooked and [id number]-vz-vvu foods. Medicine Use acetaminophen or nonsteroidal anti-inflammatory drugs (NSAID) such as ibuprofen or naproxen to control fever, unless another medicine was given. If you have chronic liver or kidney disease, talk with your healthcare provider before using these medicines. Also talk with your provider if you've??had a stomach ulcer or??gastrointestinal bleeding. Don't give aspirin??to anyone under 18 years of age who is ill with a fever. It may result in a serious illness called Nellie syndrome that may cause severe liver damage or even . Don't use NSAIDS if you're already taking one for another condition (like arthritis) or are on aspirin (such as for heart disease or after a stroke). If medicines for vomiting or diarrhea are prescribed, take these only as directed. Nausea and diarrhea medicines are generally OK unless you have bleeding, fever, or severe abdominal pain. Diet Follow these guidelines for??food: ??? Water and liquids are important so you don't get dehydrated. Drink small amounts often or suck on ice chips as tolerated if you are vomiting. ??? If you eat, stay away from fatty, greasy, spicy, or fried foods. ??? Don't eat dairy if you have diarrhea. This can make diarrhea worse. ??? Avoid tobacco, alcohol, and caffeine. These may worsen symptoms. During the first 24 hours (the first full day), follow the diet below: ??? Beverages. Sip sports drinks, soft drinks without caffeine, layla carlos, mineral water (plain orflavored), decaffeinated tea and coffee. If you are very dehydrated, sports drinks aren't a good choice. They have too much sugar and not enough electrolytes. In this case, use products called oral rehydration solutions. You can buy these at pharmacies and grocery stores. ??? Soups. Eat clear broth, consomm??, and bouillon. ??? Desserts. Eat gelatin, ice pops, and fruit juice bars. During the next 24 hours (the second day), you may add the following to the above: ??? Hot cereal, plain toast, bread, rolls, and crackers ??? Plain noodles, rice, mashed potatoes, chicken noodle or rice soup ??? Unsweetened canned fruit (avoid pineapple), bananas ??? Limit fat intake to less than 15 grams per day. Do this by avoiding margarine, butter, oils, mayonnaise, sauces, gravies, fried foods, peanut butter, meat, poultry, and fish. ??? Limit fiber and avoid raw or cooked vegetables, fresh fruits (except bananas), and bran cereals. ??? Limit caffeine and chocolate. Don't use spices or seasonings other than salt. ??? Limit dairy products. ??? Avoid alcohol. During the next 24 hours: ??? Gradually resume a normal diet as you feel better and your symptoms improve. ??? If at any time it starts getting worse again, go back to clear liquids until you feel better. ?? Follow-up care Follow up with your healthcare provider, or??as advised. Call your provider if you don't get betterwithin 24 hours or if diarrhea lasts more than a few days. It's also important to follow up if you can't keep down liquids, which can lead to becoming dehydrated. If a stool (diarrhea) sample was taken, call as directed for the results. ?? Call 911 Call 911 if any of these occur: ??? Trouble breathing ??? Chest pain ??? Confused ??? Severe drowsiness or trouble awakening ??? Fainting or loss of consciousness ??? Rapid heart rate ??? Seizure ???Stiff neck ?? When to get medical advice Call your healthcare provider right away if any of these occur: ??? Abdominal pain that gets worse ??? Continued vomiting (can't keep liquids down) ??? Frequent diarrhea (more than 5 times a day) ???Blood in vomit or stool (black or red color) ??? Dark urine, reduced urine output, or extreme thirst ??? Weakness or dizziness ??? Drowsiness ??? Fever of 100.4??F (38??C)??or higher, or as advised by your provider ??? New rash ?? Last Reviewed Date: 2021 ?? [id number] [employer]. All rights reserved. This information is not intended as a substitute for professional medical care. Always follow your healthcare professional's instructions. ?? Patient Care team information Care Team Personnel Name: Hector Ann RN Position: [facility] RN Member Role: Primary Care Nurse Name: Chevy Galindo RN Position: [facility] RN Member Role: Primary Care Nurse Name: Peg Vasquez RN Position: [facility] RN Member Role: Primary Care Nurse Name: Andra Jain RN Position: [facility] RN Member Role: Primary Care Nurse Name: Kellie Tsang RN Position: [facility] RN Member Role: Primary Care Nurse Name: Roseanna Angulo RN Position: [facility] RN Member Role: Primary Care Nurse Name: Megan Perez RN Position: [facility] PRERNA RN W/OE and Tasks Member Role: Primary Care Nurse Name: Thea Jean-Baptiste RN Position: S RN Member Role: Primary Care Nurse Name: Kiesha Jean-Baptiste RN Position: S RN Member Role: Primary Care Nurse Name: Nohelia Mcclendon RN Position: S RN Member Role: Primary Care Nurse Name: Ebony Reina RN Position: S RN Member Role: Primary Care Nurse Name: Aurelio Carey MD Position: Reference Physician Member Role: PCP Address: Address: [address] [place] [address] - Name: Trish White Position: [facility] Associate Professional Member Role: ED Physician Corporate Real Estate Manager Address: Address: [address] [place] [id number]- Name: Caro Vee RN Position: [facility] ED RN W/OE and Tasks Member Role: Patient Care Provider Name: Herbert Fischer MD Position: [facility] ED Medicine MD Member Role: Admitting Physician Address: Address: [address] [place] [id number]- Care Team Related Persons Name: GREGG MCCALLUM Address: [place] [address] Name: CLEMENCIA PADRON Address: home [place], [place] Name: NAHOMY ESCALANTE
[2023-06-08 08:11] LABS: COVID-19 Test Negative (Negative); IDNOW Serial# BCCEAD1C
[2023-06-08 08:17] LABS: Amphetamine Screen Urine Not Detected (Not Detect); Barbiturates, Urine Not Detected (Not Detect); Benzodiazepines Screen Urine Not Detected (Not Detect); Cannabinoid Screen Urine Not Detected (Not Detect); Cocaine Screen Urine POSITIVE (Not Detect); Opiate Screen Urine POSITIVE (Not Detect); Phencyclidine Screen Urine POSITIVE (Not Detect)
[2023-06-08 08:17] LABS: Alanine Aminotransferase 46 U/L (0-40); Albumin Level 3.5 g/dL (3.5-5.0); Alkaline Phosphatase 48 U/L (39-117); Anion Gap 9 (12-20); Aspartate Amino Transferase 84 U/L (5-37); Bilirubin Total 0.2 mg/dL (0.0-1.0); Blood Urea Nitrogen 15 mg/dL (9-16); Calcium 8.8 mg/dL (8.4-10.2); Carbon Dioxide 33 mmol/L (22-29); Chloride 103 mmol/L (96-108); Creatinine Clr Calc Pharmacy 206.3; Estimated Glomerular Filt Rate > 60; Ethanol < 10 mg/dL; Glucose Random 121 mg/dL (60-115); Magnesium 2.2 mg/dL (1.6-2.6); Potassium 4.2 mmol/L (3.3-5.1); Sodium 141 mmol/L (135-145); Total Protein 7.2 g/dL (6.5-8.0)
[2023-06-08 08:19] LABS: Acetaminophen LAB < 17 mcg/mL (<30); Salicylate < 5.0 mg/dL (15-30)
--- NOTE | 2023-06-08 09:16 | PC.NURSE ---
assumed care of this pt at 0800. pt being evaluated at the time of assuming care. pt calm and cooperative. Jenny from Care Team is with the pt at this time. will continue to observe.
[2023-06-08 10:44] LABS: Appearance Urine Clear; Color Urine Yellow; Glucose Urine UA Negative (Negative); Leukocyte Esterase Urine Negative (Negative); Nitrite Urine Negative (Negative); Specific Gravity - Urine >= 1.030 (1.005-1.025); UMIC TRIGGER UACC YES; Urine Blood Negative (Negative); Urine Ketones Negative (Negative); Urine Protein 30 (1+) mg/dL (Neg-Trace)
[2023-06-08 10:46] LABS: Bacteria Urine None Seen (None Seen); Hyaline Casts Urine 0-2 /LPF (0-2); RBC Urine 0-2 /HPF (0-2); Squamous Epithelial Cell Urine 0-2 /HPF (0-2); WBC Urine 0-5 /HPF (0-5)
--- NOTE | 2023-06-08 12:33 | ED_ITS ---
HPI - Psych General Chief Complaint: Psychiatric Symptoms Stated Complaint: ?Hallucinations Time Seen by Provider: 06/08/23 07:02 Source: patient Mode of arrival: ambulatory Limitations: no limitations History of Present Illness HPI Narrative: Patient is a 37 year old male hx substance use d/o who presents to the ED with auditory and visual hallucinations x a few days. Patient explained that these voices he is hearing are telling him to harm himself. Patient has suicidal ideation secondary to the hallucinations and states he would hurt himself by recklessly driving a motor vehicle. Patient also admits to homicidal ideations and states he was hurt others by strangulating them. Patient admits to drug use, last use was fentanyl 3 days ago. Denies alcohol use but admits to tobacco use. Patient states taking medications as prescribed. No medical complaints Related Data Allergies Allergy/AdvReac Type Severity Reaction Status Date / Time lithium [LITHIUM] Allergy Unknown SWELLING,RA Unverified 07/08/20 17:53 SH trazodone [TRAZODONE] Allergy Unknown UNKNOWN Unverified 07/08/20 17:53 ziprasidone [From GEODON] Allergy Unknown SWELLING Unverified 07/08/20 17:53 Review of Systems 2 Review of Systems: Constitutional : No Weight loss, No Fever, No Chills, No Fatigue, No Malaise ENT/Mouth : No sore throat, No Rhinorrhea Eyes: No Eye Pain, No Swelling, No Redness Cardiovascular : No Chest Pain, No SOB, No Dyspnea on Exertion, No Orthopnea, No Edema, No Palpitations Respiratory : No Cough, No Sputum, No Wheezing Gastrointestinal : No Nausea, No Vomiting, No Diarrhea, No Constipation, No abdominal Pain, No Hematochezia, No Melena Genitourinary : No Dysuria, No Urinary Frequency, No Hematuria, Musculoskeletal : No joint pain, No Myalgias, No Joint Swelling Skin : No Skin Lesions, No rash Neuro : No Weakness, No Numbness, No Dizziness, No Headache Psych : +auditory and visual hallucinations, suicidal and homicidal ideation, + Anxiety/Panic, No Depression All other systems reviewed and are negative Yes all other systems are reviewed and are negative PMFSH Past Medical History Attestation statement: The following information was validated with the patient. Source: old records reviewed and nursing notes reviewed Social History Social History Advance Directives: No Healthcare Proxy: No Guardian: No Physical Exam Vital Signs: Vital Signs: Last Vital Signs Temp 97.5 F 06/08/23 06:55 Pulse 70 06/08/23 06:55 Resp 16 06/08/23 06:55 BP 140/86 H 06/08/23 06:55 Pulse Ox 95 06/08/23 06:55 O2 Del Method Room Air 06/08/23 06:55 BMI result Body Mass Index 57.8 VSS Appearance: Alert.? Oriented X3.? No acute distress.? Head: Normocephalic, atraumatic, no step-offs or deformities Eyes: Pupils equal, round and reactive to light.? CVS: Normal heart rate and rhythm.? Pulses normal.? Respiratory: No respiratory distress.? Breath sounds normal.? Skin: Skin warm and dry.? Normal skin color.? Normal skin turgor.? Extremities: No lower extremity edema.? No calf ttp. 5/5 strength to bilateral upper and lower extremities Neuro: Oriented X 3.? No motor deficit.? No sensory deficit. CN 2-12 intact Course Reevaluation(s) Reevaluation #1: CBC appears to be around patient's baseline. Chemistry with no acute findings requiring intervention. Transaminases slightly elevated likely patient's baseline secondary to polysubstance abuse and alcohol use. No abdominal pain or tenderness to palpation. Urine clean. Urine toxicology positive for opiates, fentanyl, PCP, cocaine. Ethanol, salicylates and acetaminophen negative. At this time patient cleared medically. Will be seen by the care team. At this time patient to be placed in observation to allow more time to be evaluated by care team. At time observation was started patient common cooperative no acute distress will continue to monitor. Time: 13:29 Medical Decision Making Medical Decision Making [facility] Narrative: 37 year old male presenting with auditory hallucination, suicidal ideations and homicidal ideations Exam benign This is likely hallucinations secondary to polysubstance use. Unlikely delirium secondary to medical problem due to normal labs and urine. Other differentials include schizophrenia, bipolar disorder, electrolyte disturbances. Plan: Medically cleared for care team evaluation Differential Diagnosis Differential Diagnoses: The differential diagnosis associated with the presentation includes This is likely hallucinations secondary to underlying psychiatric disorder and concomitant drug use. Unlikely delirium secondary to medical problem due to no rmal labs and urine. Other differentials include schizophrenia, bipolar disorder, electrolyte disturbances. Admission/Observation Consideration of admission/observation: Escalation of care including admission/observation considered Not indicated. Lab Data MDM Lab Attestation statement: I reviewed the patient's lab results. Mildly elevated AST and ALT secondary to substance use. 06/08/23 07:50 06/08/23 07:50 Labs: Lab Results 06/08/23 06/08/23 06/08/23 Range/Units 07:08 07:50 07:50 WBC 8.7 (4.8-10.8) X10*3/uL RBC 3.87 L (4.60-5.80) X10*6/uL Hgb 11.2 L (14.0-18.0) g/dl Hct 35.6 L (42.0-52.0) % MCV 92.0 (80.0-98.0) fL MCH 28.9 (27.0-33.0) pg MCHC 31.5 (31.0-36.0) g/dl RDW 13.2 (11.0-16.0) % Plt Count 213 (160-400) X10*3/uL MPV 9.4 (9.4-12.4) fL Immature Gran % (Auto) 0.3 (0.0-0.4) % Neut % (Auto) 61.5 (45-73) % Lymph % (Auto) 24.4 (20-40) % Power % (Auto) 9.4 (2-11) % Eos % (Auto) 3.8 (0-4) % Baso % (Auto) 0.6 (0-2) % Lymph # (Auto) 2.1 (1.2-4.9) X10*3/uL Power # (Auto) 0.8 (0.1-1.2) X10*3/uL Eos # (Auto) 0.3 (0.0-0.4) X10*3/uL Baso # (Auto) 0.1 (0.0-0.2) X10*3/uL Abs Immat Gran (auto) 0.03 (0.00-0.03) X10*3/uL Absolute Neuts (auto) 5.4 (2.0-8.3) x10*3/uL Absolute Nucleated RBC 0.000 (0.0-0.012) X10*3/uL Nucleated RBC % (auto) 0.0 (0.0-0.2) /100WBC Sodium 141 (135-145) mmol/L Potassium 4.2 (3.3-5.1) mmol/L Chloride 103 (96-108) mmol/L Carbon Dioxide 33 H (22-29) mmol/L Anion Gap 9 L (12-20) BUN 15 (9-16) mg/dL Creatinine 0.77 (0.5-1.4) mg/dL Estim Creat Clear Calc 206.3 Estimated GFR > 60 Random Glucose 121 H (60-115) mg/dL Calcium 8.8 (8.4-10.2) mg/dL Magnesium 2.2 (1.6-2.6) mg/dL Total Bilirubin 0.2 (0.0-1.0) mg/dL AST 84 H (5-37) U/L ALT 46 H (0-40) U/L Alkaline Phosphatase 48 (39-117) U/L Total Protein 7.2 (6.5-8.0) g/dL Albumin 3.5 (3.5-5.0) g/dL Urine Color Yellow Urine Appearance Clear Urine pH 6.0 (5.0-9.0) Ur Specific [place] >= 1.030 H (1.005-1.025) Urine Protein 30 (1+) H (Neg-Trace) mg/dL Urine Glucose (UA) Negative (Negative) mg/dL Urine Ketones Negative (Negative) mg/dL Urine Blood Negative (Negative) Urine Nitrite Negative (Negative) Ur Leukocyte Esterase Negative (Negative) Urine RBC 0-2 (0-2) /HPF Urine WBC 0-5 (0-5) /HPF Ur Squamous Epith Cells 0-2 (0-2) /HPF Urine Bacteria None Seen (None Seen) Hyaline Casts 0-2 (0-2) /LPF Salicylates (15-30) mg/dL Urine Opiates Screen (Not Detect) Urine Fentanyl Screen (Not Detect) Acetaminophen (<30) mcg/mL Ur Barbiturates Screen (Not Detect) Ur Phencyclidine Scrn (Not Detect) Ur Amphetamines Screen (Not Detect) U Benzodiazepines Scrn (Not Detect) Urine Cocaine Screen (Not Detect) U Marijuana (THC) Screen (Not Detect) Ethyl Alcohol < 10 mg/dL COVID-19 (KEITH) (Negative) COVID-19 Clin Com 06/08/23 06/08/23 06/08/23 Range/Units 07:50 07:50 07:58 WBC (4.8-10.8) X10*3/uL RBC (4.60-5.80) X10*6/uL Hgb (14.0-18.0) g/dl Hct (42.0-52.0) % MCV (80.0-98.0) fL MCH (27.0-33.0) pg MCHC (31.0-36.0) g/dl RDW (11.0-16.0) % Plt Count (160-400) X10*3/uL MPV (9.4-12.4) fL Immature Gran % (Auto) (0.0-0.4) % Neut % (Auto) (45-73) % Lymph % (Auto) (20-40) % Power % (Auto) (2-11) % Eos % (Auto) (0-4) % Baso % (Auto) (0-2) % Lymph # (Auto) (1.2-4.9) X10*3/uL Power # (Auto) (0.1-1.2) X10*3/uL Eos # (Auto) (0.0-0.4) X10*3/uL Baso # (Auto) (0.0-0.2) X10*3/uL Abs Immat Gran (auto) (0.00-0.03) X10*3/uL Absolute Neuts (auto) (2.0-8.3) x10*3/uL Absolute Nucleated RBC (0.0-0.012) X10*3/uL Nucleated RBC % (auto) (0.0-0.2) /100WBC Sodium (135-145) mmol/L Potassium (3.3-5.1) mmol/L Chloride (96-108) mmol/L Carbon Dioxide (22-29) mmol/L Anion Gap (12-20) BUN (9-16) mg/dL Creatinine (0.5-1.4) mg/dL Estim Creat Clear Calc Estimated GFR Random Glucose (60-115) mg/dL Calcium (8.4-10.2) mg/dL Magnesium (1.6-2.6) mg/dL Total Bilirubin (0.0-1.0) mg/dL AST (5-37) U/L ALT (0-40) U/L Alkaline Phosphatase (39-117) U/L Total Protein (6.5-8.0) g/dL Albumin (3.5-5.0) g/dL Urine Color Urine Appearance Urine pH (5.0-9.0) Ur Specific [place] (1.005-1.025) Urine Protein (Neg-Trace) mg/dL Urine Glucose (UA) (Negative) mg/dL Urine Ketones (Negative) mg/dL Urine Blood (Negative) Urine Nitrite (Negative) Ur Leukocyte Esterase (Negative) Urine RBC (0-2) /HPF Urine WBC (0-5) /HPF Ur Squamous Epith Cells (0-2) /HPF Urine Bacteria (None Seen) Hyaline Casts (0-2) /LPF Salicylates < 5.0 L (15-30) mg/dL Urine Opiates Screen POSITIVE H (Not Detect) Urine Fentanyl Screen POSITIVE H (Not Detect) Acetaminophen < 17 (<30) mcg/mL Ur Barbiturates Screen Not Detected (Not Detect) Ur Phencyclidine Scrn POSITIVE H (Not Detect) Ur Amphetamines Screen Not Detected (Not Detect) U Benzodiazepines Scrn Not Detected (Not Detect) Urine Cocaine Screen POSITIVE H (Not Detect) U Marijuana (THC) Screen Not Detected (Not Detect) Ethyl Alcohol mg/dL COVID-19 (KEITH) Negative (Negative) COVID-19 Clin Com See Note Core Measures AMI core measures followed: Yes Measure exclusions: not indicated Critical Care Time Critical Care Time Critical Care Time: No Discharge Plan Discharge Clinical Impression: Polysubstance abuse Patient Disposition: Still a Patient Instructions: Polysubstance Abuse (ED) Additional Instructions: Take your medications as prescribed. If you were prescribed antibiotics today, it is important that you take your medication to their entirety, do not skip any doses, do not finish them early. Follow-up with your primary care provider this week. Return to the emergency department with new or worsening symptoms. Such as fevers, chills, chest pain, shortness of breath, nausea, vomiting, dizziness, headache, vision changes, lethargy In case of emergency call 911
--- NOTE | 2023-06-08 13:23 | MHC.CARE ---
Pt has been seen by CARE team, patient does not meet inpatient level of care and is requesting hospital recovery services for detox. Pt denies any thoughts to harm self or others. Referral made to recovery team.
--- NOTE | 2023-06-08 14:23 | PHA.MEDREC ---
Pharmacy Consult ? Medication Reconciliation Pharmacy has completed the medication reconciliation. Spoke to patient to confirm meds. Patient states they take methadone 170mg daily and gets methadone at clinic on [facility].
[2023-06-08 16:15] VITALS: RESP 20
[2023-06-08] MEDS: cloNIDine HCL 0.1 MG TABLET PO ×2 (16:23→20:45)
[2023-06-08] MEDS: Gabapentin 400 MG CAPSULE 800 MG PO ×2 (16:23→20:45)
--- NOTE | 2023-06-08 16:31 | MHC.RECOVSUP ---
Addendum entered by Guanakito Bonilla 06/08/23 17:21: ATS bed search exhausted. Pt provided resources. Original Note: Met with pt in [facility] who is here for psychiatric and CHRISTOPHER. Pt informs he has been sober for 5 months but used 1 bag of heroin yesterday intravenously, pt reports having overdosed 2 times with the most recent being 13 years ago. Pt is currently on 170mg Methadone from [facility] on [address] and is currently interested in ATS. Bed search is in process.
[2023-06-08 20:40] VITALS: BP 147/85; PULSE 63; RESP 20; TEMP 36.2; O2SAT 95
[2023-06-08] MEDS: lamoTRIgine 100 MG TABLET PO (20:45)
[2023-06-08] MEDS: OLANZapine 7.5 MG TABLET 15 MG PO (20:45)
[2023-06-08] MEDS: hydrOXYzine HCL 50 MG TABLET PO (20:45)
[2023-06-08] MEDS: Mirtazapine 15 MG TABLET PO (20:45)
[2023-06-08] MEDS: Propranolol HCL 40 MG TABLET PO (20:47)
[2023-06-09 02:09] VITALS: BP 132/74; PULSE 67; RESP 14; TEMP 36.1; O2SAT 97
--- NOTE | 2023-06-09 04:53 | PC.NURSE ---
Patient slept through the night, no distress observed/reported, no distress observed/reported labs completed/resulted, medication compliant, pending methadone verification, disposition per care team is respite bed search, behavior non concerning, VSS, will continue to monitor.
[2023-06-09] MEDS: cloNIDine HCL 0.1 MG TABLET PO ×2 (07:27→13:13)
[2023-06-09] MEDS: hydrOXYzine HCL 50 MG TABLET PO (07:27)
[2023-06-09] MEDS: Gabapentin 400 MG CAPSULE 800 MG PO ×2 (07:27→13:12)
[2023-06-09] MEDS: Mirtazapine 15 MG TABLET 45 MG PO (07:28)
[2023-06-09] MEDS: lamoTRIgine 100 MG TABLET PO (07:28)
[2023-06-09] MEDS: Omeprazole 20 MG CAPSULE.DR PO (07:28)
[2023-06-09] MEDS: Tamsulosin HCL 0.4 MG CAPSULE 0.8 MG PO (07:28)
--- NOTE | 2023-06-09 07:28 | HE.PHANOTE ---
RE: METHADONE Pharmacy has received patients methadone verification sheet. Patients dose was confirmed with [facility] for [facility] at 170 mg, last dosed on 06/05 with 3 take home bottles for 06/06, 06/07 and 06/08. RN confirmed with patient that they took the take home doses up to and on 06/07
[2023-06-09] MEDS: methADONE HCl 20 MG/2 ML ORAL.CONC 170 MG PO (07:40)
[2023-06-09] MEDS: Propranolol HCL 40 MG TABLET PO (07:47)
[2023-06-09 07:50] VITALS: BP 161/95; PULSE 76; RESP 17; TEMP 35.7; O2SAT 98
[2023-06-10 12:35] LABS: Fentanyl, urine SEE COMMENTS (Not Detect)
[2023-06-14 09:04] LABS: Norfentanyl, Ur >500.0 (H)
== END 2023-06-09 13:57 | disposition home or self-care (01) ==
PROVIDERS: Physician Assistant; Emergency Provider Emergency Medicine Emergency Medical Services
DX: F19.10 Other psychoactive substance abuse, uncomplicated (principal); R44.0 Auditory hallucinations; R44.1 Visual hallucinations; R45.851 Suicidal ideations; R45.850 Homicidal ideations; E66.9 Obesity, unspecified; Z68.43 Body mass index [BMI] 50.0-59.9, adult; Z20.822 Contact with and (suspected) exposure to COVID-19; F11.20 Opioid dependence, uncomplicated; Z79.899 Other long term (current) drug therapy
CPT/HCPCS: 80053; 80143; 80179; 80307; 80354; 81001; 83735; 85025; 87635; 93005; 99285; S9485

== ENCOUNTER → 2024-11-10 10:17 | Outpatient (BNVA) | payer MEDICAID, SELFPAY | PROVIDERS: PCP Physician Assistant Medical; Visit Provider Physician Assistant Surgical ==

== ENCOUNTER 2024-11-14 08:02 | Outpatient (AMB) | payer MEDICAID, SELFPAY ==
--- NOTE | 2024-11-14 10:09 | A.OFFVIS_ITS ---
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 BMI 73.1 Allergies lithium [LITHIUM] Allergy (Unknown, Verified 11/14/24 10:11) SWELLING,RASH trazodone [TRAZODONE] Allergy (Unknown, Verified 11/14/24 10:11) UNKNOWN ziprasidone [From GEODON] Allergy (Unknown, Verified 11/14/24 10:11) SWELLING Medication List - Last Reconciled 11/14/24 by Gorge Lopez MD clonazepam (Klonopin) 1 mg PO DAILY clonidine HCl 0.1 mg PO QID gabapentin 800 mg PO QID ibuprofen 800 mg PO Q6H PRN lamotrigine 100 mg PO BID methadone 170 mg PO DAILY mirtazapine 45 mg PO DAILY olanzapine 15 mg PO BEDTIME omeprazole 20 mg PO DAILY propranolol 40 mg PO BID tirzepatide (weight loss) (Zepbound) 5 mg subcut QWEEK HPI HPI TV [employer]AC[employer]Y SUPPORT COORDINATOR SWL BMI 73.1: Details: Start time: 10.00am, End time: 10.35am ?I spent 30 minutes speaking with the patient on the phone plus an additional 5 minutes reviewing and updating records for a total of 35 minutes HPI Comments Details: Is interested in bariatric surgery. Was placed on 2.5 mg/wk Zepbound by his PCP and now was increased to 5mg/wk Lives in a mental health facility and he is served specific food. Cannot purchase his own food. He expects to be there for another 6 months. He has no weight scale to weigh there that carries his weight and he will come to my office every other week to do that. [facility] Medical History (Updated 11/14/24 @ 10:18 by Gorge Lopez MD) Opioid abuse Sciatica Insomnia Anxiety Depression Hyperlipidemia Bipolar 1 disorder PTSD (post-traumatic stress disorder) GERD (gastroesophageal reflux disease) Hypertension Morbid obesity Surgical History (Updated 11/10/24 @ 10:58 by Marilee Payne CMA) No history of previous surgery Family History (Updated 11/10/24 @ 10:42 by Marilee Payne CMA) Mother Bipolar 1 disorder Anxiety Depression Father No problems noted. Son No problems noted. Social History (Updated 11/10/24 @ 10:58 by Marilee Payne CMA) Alcohol intake: current Alcohol intake frequency: does not drink Patient Tobacco Use Status: Current everyday Tobacco user Cigarettes Per Day: 8 Telehealth Telehealth Telehealth Platform: Telephone Location of provider rendering services: practice address Location of patient: address on file Patient Identification confirmed using: Name, : Yes Telehealth method: voice only Patient verbally consented to treatment: Yes Patient verbally consented to billing insurance company: Yes Patient informed of any privacy concerns related to visit: Yes Minutes spent on Phone/Video with Pt.: 35 Assessment & Plan Assessment & Plan (1) Morbid obesity: Code(s): E66.01 - Morbid (severe) obesity due to excess calories Category: Medical Plan: 1. Please come to the office every other week, ideally at the same day and as early as possible to get weighed. Please share these weight measurements with me 2. Do aerobic exercise (outside walking, or treadmill, or elliptical or statio nary bike) and do 150 minutes of aerobic exercise per week, or 22 minutes per day. 3. Continue the Zepbound when you get your body composition scale once a week. Use a calorie-counting meg to track your daily calories to create a calorie deficit with a target of consuming 3349-7073 calories per day. We discussed the potential side effects of Zepbound such as nausea, vomiting, abdominal pain, diarrhea and constipation and you will need to contact me if any of these symptoms occur or for any other new symptom you may experience ?4. Goal is to lose at least 1.5-2lbs per week ?5. Goal to lose 10% of your weight before surgery, which is about 50lbs. Ultimate weight goal: 430lbs before surgery
[2024-11-14 10:33] VITALS: BMI 73.0
== END 2024-11-14 10:36 | disposition home or self-care (01) ==
LOC: HO.HBS 08:02
PROVIDERS: PCP Physician Assistant Medical; Visit Provider Surgery
DX: E66.01 Morbid (severe) obesity due to excess calories (principal)
CPT/HCPCS: 99203

== ENCOUNTER → 2024-11-14 08:02 | Outpatient (BNVA) | payer MEDICAID, SELFPAY | PROVIDERS: PCP Physician Assistant Medical; Visit Provider Surgery ==

== ENCOUNTER → 2024-12-18 10:10 | Outpatient (BNVA) | payer MEDICAID, SELFPAY | PROVIDERS: PCP Physician Assistant Medical; Visit Provider Surgery ==